=== PATIENT | male | born 1965 | race African-American/Black ===

== ENCOUNTER 2017-10-14 12:50 | Observation (INO) | payer OTHER ==
[~2017-10-14] VITALS: Ht 182.9 cm; Wt 81.5 kg
[2017-10-14] VITALS (7 sets, daily range): BP systolic 139–168; BP diastolic 75–100; PULSE 96–130; RESP 16–20; TEMP 97.8–99; O2SAT 94–100
[~2017-10-14 12:50] MED LIST: ALLO300 PO; CYCL-36 PO; HYDR-2768 PO; LOSA25TA31; MAGN200T2 PO; METO50TA PO; TRAZ100 PO; VENL100T PO
[2017-10-14] MEDS ORDERED: ALLO300T2 PO (13:04)
[2017-10-14] MEDS ORDERED: BUSP10TA PO (13:04)
[2017-10-14] MEDS ORDERED: LISI10TA3 PO (13:04)
[2017-10-14] MEDS ORDERED: SODIUM CHLOR 0.9% 1000 ML INJ 1,000 ML IV SCH (13:11)
[2017-10-14] MEDS ORDERED: methylPREDNISolone SOD SUCC 125 MG/2 ML VIAL IV PUSH ONE (13:15)
[2017-10-14] MEDS: SODIUM CHLORIDE 0.9% FLUSH 10 ML FLUSH IV FLUSH PRN ×2 (13:18→15:23)
--- NOTE | 2017-10-14 13:18 | PD ---
HPI Chief Complaint: Allergic/Adverse Reaction Time Seen by Provider: 13:07 Travel History International Travel<30 days: No Contact w/Intl Traveler<30days: No Traveled to known affect area: No History of Present Illness HPI 52-year-old male presents to emergency department complaining of swollen lips after eating sausage this morning. Patient says he also takes lisinopril for his blood pressure and took this medication approximately 45 minutes to an hour before the onset of symptoms. Patient states that his right upper lip started "feeling funny" and then he noticed the swelling. Patient states that his lower lip also started swelling which is different than the last episode. Patient states that this occurred once before but it went away throughout the day on its on. Patient says that he has had this sausage before without any issues but believes this may be the contribute in cause. Patient says that his daughter had a similar episode after eating cake but this went away on its own as well. Denies any known family history of hereditary angioedema. Denies new medication, foods, lotions, soaps. Denies shortness of breath or chest pain. Denies nausea, vomiting, diarrhea. PFSH Past Medical History Anxiety: Yes Heart Rhythm Problems: No Cardiovascular Problems: Yes (htn) High Cholesterol: No Congestive Heart Failure: No Diabetes: No Gout: Yes Hypertension: Yes Psychiatric: Yes (pts) Myocardial Infarction: No Tetanus Vaccination: > 5 Years Influenza Vaccination: Yes Past Surgical History Coronary Artery Bypass Graft: No Social History Alcohol Use: Yes (2-3 DRINKS PER DAY, BEER OR MIXED DRINK) Tobacco Use: Yes (1 PPD-) Substance Use: No Allergies-Medications (Allergen,Severity, Reaction): Coded Allergies: No Known Allergies (Verified Allergy, Unknown, 10/14/17) Reported Meds & Prescriptions Reported Meds & Active Scripts Active Reported Buspirone (Buspirone HCl) 10 Mg Tab 10 Mg PO TID Allopurinol 300 Mg Tab 300 Mg PO DAILY Review of Systems Except as stated in HPI: all other systems reviewed are Neg Physical Exam Narrative GENERAL: Well-developed well-nourished in mild distress SKIN: Focused skin assessment warm/dry. HEAD: Atraumatic. Normocephalic. EYES: Pupils equal and round. No scleral icterus. No injection or drainage. ENT: No nasal bleeding or discharge. Mucous membranes pink and moist. Upper and lower lips- edematous without obvious oral involvement. Tongue nonedematous. NECK: Trachea midline. No JVD. No lymphadenopathy CARDIOVASCULAR: Regular rate and rhythm. No murmur appreciated. RESPIRATORY: No accessory muscle use. Clear to auscultation. Breath sounds equal bilaterally. GASTROINTESTINAL: Abdomen soft, non-tender, nondistended. MUSCULOSKELETAL: No obvious deformities. No clubbing. No cyanosis. No edema. NEUROLOGICAL: Awake and alert. No obvious cranial nerve deficits. Motor grossly within normal limits. Normal speech. PSYCHIATRIC: Appropriate mood and affect; insight and judgment normal. Data Data Last Documented VS Vital Signs Date Time Temp Pulse Resp B/P (MAP) Pulse Ox O2 Delivery O2 Flow Rate FiO2 10/14/17 15:23 97.9 98 16 168/87 (114) 99 Room Air Orders Orders Complete Blood Count With Diff (10/14/17 13:11) Comprehensive Metabolic Panel (10/14/17 13:11) Ecg Monitoring (10/14/17 13:11) Iv Access Insert/Monitor (10/14/17 13:11) Oximetry (10/14/17 13:11) Methylprednisolone So Succ Inj (Solumedr (10/14/17 13:15) Sodium Chlor 0.9% 1000 Ml Inj (Ns 1000 M (10/14/17 13:11) Sodium Chloride 0.9% Flush (Ns Flush) (10/14/17 13:15) Famotidine Inj (Pepcid Inj) (10/14/17 14:00) Diphenhydramine Inj (Benadryl Inj) (10/14/17 15:30) Admit Order (Ed Use Only) (10/14/17 15:29) Labs Laboratory Tests Test 10/14/17 13:10 White Blood Count 7.0 TH/MM3 Red Blood Count 4.05 MIL/MM3 Hemoglobin 13.0 GM/DL Hematocrit 37.8 % Mean Corpuscular Volume 93.3 FL Mean Corpuscular Hemoglobin 32.0 PG Mean Corpuscular Hemoglobin Concent 34.3 % Red Cell Distribution Width 13.7 % Platelet Count 202 TH/MM3 Mean Platelet Volume 7.7 FL Neutrophils (%) (Auto) 62.2 % Lymphocytes (%) (Auto) 29.3 % Monocytes (%) (Auto) 6.5 % Eosinophils (%) (Auto) 1.2 % Basophils (%) (Auto) 0.8 % Neutrophils # (Auto) 4.4 TH/MM3 Lymphocytes # (Auto) 2.1 TH/MM3 Monocytes # (Auto) 0.5 TH/MM3 Eosinophils # (Auto) 0.1 TH/MM3 Basophils # (Auto) 0.1 TH/MM3 CBC Comment DIFF FINAL Differential Comment Blood Urea Nitrogen 7 MG/DL Creatinine 1.17 MG/DL Random Glucose 75 MG/DL Total Protein 9.3 GM/DL Albumin 4.0 GM/DL Calcium Level 9.8 MG/DL Alkaline Phosphatase 138 U/L Aspartate Amino Transf (AST/SGOT) 110 U/L Alanine Aminotransferase (ALT/SGPT) 80 U/L Total Bilirubin 0.5 MG/DL Sodium Level 135 MEQ/L Potassium Level 4.0 MEQ/L Chloride Level 98 MEQ/L Carbon Dioxide Level 27.2 MEQ/L Anion Gap 10 MEQ/L Estimat Glomerular Filtration Rate 80 ML/MIN MDM Medical Decision Making Medical Screen Exam Complete: Yes Emergency Medical Condition: Yes Differential Diagnosis Allergic reaction, hereditary angioedema, anaphylaxis, drug-induced reaction Narrative Course 52-year-old male presents to emergency department complaining of swollen lips after eating sausage this morning. Patient says he also takes lisinopril for his blood pressure and took this medication approximately 45 minutes to an hour before the onset of symptoms. Patient states that his right upper lip started "feeling funny" and then he noticed the swelling. Patient states that his lower lip also started swelling which is different than the last episode. Patient states that this occurred once before but it went away throughout the day on its on. Patient says that he has had this sausage before without any issues but believes this may be the contribute in cause. Patient says that his daughter had a similar episode after eating cake but this went away on its own as well. Denies any known family history of hereditary angioedema. Denies new medication, foods, lotions, soaps. Denies shortness of breath or chest pain. Denies nausea, vomiting, diarrhea. Vital signs stable. Labs stable. Reassessment demonstrates entire lip area swollen. Patient received 125 mg IV Medrol, famotidine, and 50mg Benedryl Because of the worsening symptoms, will admit to observation to ensure symptom improvement. I recommend discontinuing lisinopril. Follow-up with a metal shaping machine operator or sap sd analyst. Thank you Dr. Helms for taking this patient. Diagnosis Primary Impression: Angio-edema Qualified Codes: T78.3XXA - Angioneurotic edema, initial encounter Admitting Information Admitting Physician Requests: Observation Condition: Stable Kristine Ellis Oct 14, 2017 13:18
[2017-10-14 13:38] LABS: AUTOMATED NEUTROPHIL # 4.4 TH/MM3 (1.8-7.7); BASOPHIL # 0.1 TH/MM3 (0-0.2); BASOPHIL % 0.8 % (0.0-2.0); EOSINOPHIL # 0.1 TH/MM3 (0-0.4); EOSINOPHIL % 1.2 % (0.0-4.0); HEMATOCRIT 37.8 % (39.0-51.0); HEMO FLAGS DIFF FINAL; LYMPH % 29.3 % (9.0-44.0); LYMPHOCYTE # 2.1 TH/MM3 (1.0-4.8); MEAN CELL VOLUME 93.3 FL (80.0-100.0); MEAN CORPUSCULAR HGB CONC 34.3 % (32.0-36.0); MONO % 6.5 % (0.0-8.0); NEUT % 62.2 % (16.0-70.0); PLATELET COUNT 202 TH/MM3 (150-450); RED BLOOD COUNT 4.05 MIL/MM3 (4.50-5.90); RED CELL DISTRIBUTION WIDTH 13.7 % (11.6-17.2)
[2017-10-14] MEDS ORDERED: FAMOTIDINE 20 MG/2 ML VIAL IV PUSH ONE (14:00)
[2017-10-14 14:05] LABS: ALT (GPT) 80 U/L (12-78); ANION GAP 10 MEQ/L (5-15); AST (GOT) 110 U/L (15-37); BICARBONATE 27.2 MEQ/L (21.0-32.0); BLOOD UREA NITROGEN 7 MG/DL (7-18); CHLORIDE 98 MEQ/L (98-107); GLOMERULAR FILTRATION RATE 80 ML/MIN (>89); SODIUM (NA) 135 MEQ/L (136-145)
[2017-10-14 14:07] LABS: ALKALINE PHOSPHATASE 138 U/L (45-117); TOTAL BILIRUBIN ADULT 0.5 MG/DL (0.2-1.0)
[2017-10-14] MEDS ORDERED: diphenhydrAMINE HCL 50 MG/ML VIAL IV PUSH ONE (15:30)
--- NOTE | 2017-10-14 15:47 | HHI.HP ---
[facility] Service Family Medicine Primary Care Physician Evangel[facility] Admission Diagnosis angioedema Diagnoses: International Travel<30 Days: No Contact w/Intl Traveler<30days: No Known Affected Area: No History of Present Illness Mr. George is a 52 y/o M with history of gout and HTN presents to the ED with acute lip swelling. He reports that around 0 900 this morning he noticed his right upper lobe have become swollen to twice the size of his normal level. He took 2 doses of Benadryl between 0900 and 1230, however has looked severely worsened and had become 4-5 times per normal size on both the upper and lower lip. He endorses some irritation on the back of his neck and cheeks, but denies any shortness of breath, airway closure, or increased salivation. This morning he had taken his daily lisinopril 5 mg (1/2 tablet) and even some sausage. He is been taking lisinopril for 1 year and has had one similar episode where his lip swelling resolved on its own. The sausage he had eaten, he had for breakfast many times before without reaction. He endorses a family history of allergic reaction with his daughter to red velvet cake. Otherwise he denies any other allergies or episodes of acute edema. He has no other complaints and denies any fevers, chills, shortness of breath, chest pain, NVD, abdominal pain , or calf tenderness. (Matthew Helms MD R2) Review of Systems Constitutional: DENIES: Fever, Chills Eyes: DENIES: Blurred vision, Double Vision Ears, nose, mouth, throat: DENIES: Throat pain, Running Nose Respiratory: DENIES: Cough, Shortness of breath Cardiovascular: DENIES: Chest pain, Syncope Gastrointestinal: DENIES: Abdominal pain, Diarrhea, Nausea, Vomiting Genitourinary: DENIES: Hematuria, Dysuria Musculoskeletal: COMPLAINS OF: Joint pain, Back pain Integumentary: DENIES: Rash Hematologic/lymphatic: COMPLAINS OF: Lymphadenopathy Immunologic/allergic: COMPLAINS OF: Urticaria Neurologic: DENIES: Headache Psychiatric: DENIES: Mood changes (Matthew Helms MD R2) Past Family Social History Past Medical History HTN Gout Concern for alcoholic liver disease PTSD Past Surgical History ORIF of L ankle (Matthew Helms MD R2) Allergies: Coded Allergies: lisinopril (Verified Allergy, Severe, 10/15/17) angioedema Family History Father - , T2DM Mother - , HTN Daughter - one episode of lip swelling after red velvet cake, otherwise healthy , no other allergies Daughter - healthy Social History Lives together with significant other in [place]. On [place] disability. PCP is at [facility]. Tobacco - 1 ppd, for 15 years Alcohol - 1-2 drinks per day, either beer or hard liquor, no withdrawal history Illicit - Cocaine use yesterday, no other history (Matthew Helms MD R2) Physical Exam Vital Signs Vital Signs Date Time Temp Pulse Resp B/P (MAP) Pulse Ox O2 Delivery O2 Flow Rate FiO2 10/14/17 15:23 97.9 98 16 168/87 (114) 99 Room Air 10/14/17 14:05 97.9 96 16 161/92 (115) 100 Room Air 10/14/17 13:17 16 98 Room Air 10/14/17 13:00 108 16 98 Room Air 10/14/17 12:51 98.5 130 20 163/100 (121) 94 Room Air Physical Exam GENERAL: Well-nourished, well-developed patient lying in bed in no acute distress. SKIN: Warm and dry. No diffuse rash. Lips: Upper and lower lips swollen to 4-5 times there are normal sinus without ulceration or hemorrhage appreciated. Patient tender to palpation on both lips. Edema palpated from the upper and lower lip ranging back to the mandible bilaterally. Sensation and range of motion intact. HEENT: Atraumatic, normocephalic with EOMI. PERRLA. Oropharynx clear without erythema or exudate. Airway appears patent. Trachea midline. No rhinorrhea. No JVD, LAD, or thyroid abnormality appreciated. CARDIOVASCULAR: Regular rate and rhythm without obvious murmurs, gallops, or rubs. RESPIRATORY: Clear to auscultation bilaterally with no CRW. No increased work of breathing. GASTROINTESTINAL: Abdomen soft, non-tender, nondistended with positive bowel sounds. No masses appreciated. MUSCULOSKELETAL: No cyanosis or edema. Strength grossly WNL. Ambulating well BACK: Nontender without obvious deformity. No CVA tenderness. NEURO/PSYCH: Afocal. Awake, alert, and oriented x3. Normal speech and judgment Laboratory Laboratory Tests Test 10/14/17 13:10 White Blood Count 7.0 Red Blood Count 4.05 Hemoglobin 13.0 Hematocrit 37.8 Mean Corpuscular Volume 93.3 Mean Corpuscular Hemoglobin 32.0 Mean Corpuscular Hemoglobin Concent 34.3 Red Cell Distribution Width 13.7 Platelet Count 202 Mean Platelet Volume 7.7 Neutrophils (%) (Auto) 62.2 Lymphocytes (%) (Auto) 29.3 Monocytes (%) (Auto) 6.5 Eosinophils (%) (Auto) 1.2 Basophils (%) (Auto) 0.8 Neutrophils # (Auto) 4.4 Lymphocytes # (Auto) 2.1 Monocytes # (Auto) 0.5 Eosinophils # (Auto) 0.1 Basophils # (Auto) 0.1 CBC Comment DIFF FINAL Differential Comment Blood Urea Nitrogen 7 Creatinine 1.17 Random Glucose 75 Total Protein 9.3 Albumin 4.0 Calcium Level 9.8 Alkaline Phosphatase 138 Aspartate Amino Transf (AST/SGOT) 110 Alanine Aminotransferase (ALT/SGPT) 80 Total Bilirubin 0.5 Sodium Level 135 Potassium Level 4.0 Chloride Level 98 Carbon Dioxide Level 27.2 Anion Gap 10 Estimat Glomerular Filtration Rate 80 (Matthew Helms MD R2) Result Diagram: 10/14/17130910/14/171309 Caprini VTE Risk Assessment Caprini VTE Risk Assessment: Mod/High Risk (score >= 2) Caprini Risk Assessment Model Point Value = 1 Point Value = 2 Point Value = 3 Point Value = 5 Age 41-60 Minor surgery BMI > 25 kg/m2 Swollen legs Varicose veins or History of unexplained or recurrent spontaneous Oral contraceptives or hormone replacement Sepsis (< 1 month) Serious lung disease, including pneumonia (< 1 month) Abnormal pulmonary function Acute myocardial infarction Congestive heart failure (< 1 month) History of inflammatory bowel disease Medical patient at bed rest Age 61-74 Arthroscopic surgery Major open surgery (> 45 min) Laparoscopic surgery (> 45 min) Malignancy Confined to bed (> 72 hours) Immobilizing plaster cast Central venous access Age >= 75 History of VTE Family history of VTE Factor V Leiden Prothrombin [id number] Lupus anticoagulant Anticardiolipin antibodies Elevated serum homocysteine Heparin-induced thrombocytopenia Other congenital or acquired thrombophilia Stroke (< 1 month) Elective arthroplasty Hip, pelvis, or leg fracture Acute spinal cord injury (< 1 month) Prophylaxis Regimen Total Risk Factor Score Risk Level Prophylaxis Regimen 0-1 Low Early ambulation 2 Moderate Order ONE of the following: *Sequential Compression Device (SCD) *Heparin 5000 units SQ BID 3-4 Higher Order ONE of the following medications: *Heparin 5000 units SQ TID *Enoxaparin/Lovenox 40 mg SQ daily (WT < 150 kg, CrCl > 30 mL/min) *Enoxaparin/Lovenox 30 mg SQ daily (WT < 150 kg, CrCl > 10-29 mL/min) *Enoxaparin/Lovenox 30 mg SQ BID (WT < 150 kg, CrCl > 30 mL/min) AND/OR *Sequential Compression Device (SCD) 5 or more Highest Order ONE of the following medications: *Heparin 5000 units SQ TID (Preferred with Epidurals) *Enoxaparin/Lovenox 40 mg SQ daily (WT < 150 kg, CrCl > 30 mL/min) *Enoxaparin/Lovenox 30 mg SQ daily (WT < 150 kg, CrCl > 10-29 mL/min) *Enoxaparin/Lovenox 30 mg SQ BID (WT < 150 kg, CrCl > 30 mL/min) AND *Sequential Compression Device (SCD) (Matthew Helms MD R2) Assessment and Plan Assessment and Plan Mr. Meneses is a 52-year-old male admitted for angioedema of the upper and lower lips. Code Status Full Code Discussed Condition With Mrs. Ellis, ALON PA Dr. Brown (Matthew Helms MD R2) Attending Attestation Patient seen and examined. Case reviewed and discussed with the resident team. Agree with plan of care as discussed with me and documented in the resident note. he was seen in the ED by me with Dr Helms. agree with watching overnight (Nadia Brown MD) Problem List: (1) Angio-edema ICD Codes: T78.3XXA - Angioneurotic edema, initial encounter Status: Acute Plan: Patient presenting with angioedema of upper and lower lips likely due to REINIER inhibitor use -Discontinue lisinopril and all reinier medications -Solu-Medrol 40 mg IV every 12 hours -Patient previously received Benadryl, Pepcid, and Solu-Medrol in ER -Edema likely to resolve without further intervention, continue to monitor -With worsening symptoms/airway closing will treat patient with epinephrine as needed for anaphylaxis protocol (2) Gout ICD Codes: M10.9 - Gout, unspecified Status: Chronic Plan: Patient with history of gout -Continue allopurinol (3) PTSD (post-traumatic stress disorder) ICD Codes: F43.10 - Post-traumatic stress disorder, unspecified Status: Chronic Plan: Patient with history of PTSD -Continue home buspirone (4) Nutrition, metabolism, and development symptoms ICD Codes: R63.8 - Other symptoms and signs concerning food and fluid intake Status: Acute Plan: Fluids: 120 mL per hour Diet: Regular as tolerated Electrolytes: Sodium 135, otherwise within normal limits, continue to monitor Prophylaxis: Constipation protocol, Tylenol when necessary for fever, Zofran when necessary for nausea/vomiting (5) No contraindication to deep vein thrombosis (DVT) prophylaxis ICD Codes: Z78.9 - Other specified health status Status: Acute Plan: Heparin 5000 units every 12 hours SCDs (Matthew Helms MD R2) Problem Qualifiers (1) Angio-edema: Qualified Codes: T78.3XXA - Angioneurotic edema, initial encounter (2) Gout: Qualified Codes: M10.9 - Gout, unspecified Matthew Helms MD R2 Oct 14, 2017 15:47 Nadia Brown MD Oct 15, 2017 11:46
[2017-10-14] MEDS ORDERED: ACETAMINOPHEN 325 MG TAB PO PRN (17:15)
[2017-10-14] MEDS ORDERED: NALOXONE HCL 0.4 MG/ML AMP IV PUSH PRN (17:15)
[2017-10-14] MEDS ORDERED: ONDANSETRON HCL 4 MG/2 ML VIAL IVP PRN (17:15)
[2017-10-14] MEDS ORDERED: MAGNESIUM HYDROXIDE SUSP 30 ML CUP PO PRN (17:15)
[2017-10-14] MEDS ORDERED: DOCUSATE SODIUM 50 MG/SENNA 8.6 MG TAB PO PRN (17:15)
[2017-10-14] MEDS ORDERED: SENNOSIDES 8.6 MG TAB PO PRN (17:15)
[2017-10-14] MEDS ORDERED: BISACODYL 10 MG SUPP RECTAL PRN (17:15)
[2017-10-14] MEDS ORDERED: LACTULOSE SYRUP 20 GM/30 ML CUP PO PRN (17:15)
[2017-10-14] MEDS: busPIRone HCL 10 MG TAB PO SCH (18:02)
[2017-10-14] MEDS: SODIUM CHLOR 0.9% 1000 ML INJ 1,000 ML IV SCH (18:02)
[2017-10-14] MEDS: HEPARIN SODIUM - SQ 10,000 UNITS/ML VIAL SQ SCH (18:02)
--- NOTE | 2017-10-14 19:14 | PD ---
Data Data Last Documented VS Vital Signs Date Time Temp Pulse Resp B/P (MAP) Pulse Ox O2 Delivery O2 Flow Rate FiO2 10/14/17 15:23 97.9 98 16 168/87 (114) 99 Room Air Orders Orders Complete Blood Count With Diff (10/14/17 13:11) Comprehensive Metabolic Panel (10/14/17 13:11) Ecg Monitoring (10/14/17 13:11) Iv Access Insert/Monitor (10/14/17 13:11) Oximetry (10/14/17 13:11) Methylprednisolone So Succ Inj (Solumedr (10/14/17 13:15) Sodium Chlor 0.9% 1000 Ml Inj (Ns 1000 M (10/14/17 13:11) Sodium Chloride 0.9% Flush (Ns Flush) (10/14/17 13:15) Famotidine Inj (Pepcid Inj) (10/14/17 14:00) Diphenhydramine Inj (Benadryl Inj) (10/14/17 15:30) Admit Order (Ed Use Only) (10/14/17 15:29) Labs Laboratory Tests Test 10/14/17 13:10 White Blood Count 7.0 TH/MM3 Red Blood Count 4.05 MIL/MM3 Hemoglobin 13.0 GM/DL Hematocrit 37.8 % Mean Corpuscular Volume 93.3 FL Mean Corpuscular Hemoglobin 32.0 PG Mean Corpuscular Hemoglobin Concent 34.3 % Red Cell Distribution Width 13.7 % Platelet Count 202 TH/MM3 Mean Platelet Volume 7.7 FL Neutrophils (%) (Auto) 62.2 % Lymphocytes (%) (Auto) 29.3 % Monocytes (%) (Auto) 6.5 % Eosinophils (%) (Auto) 1.2 % Basophils (%) (Auto) 0.8 % Neutrophils # (Auto) 4.4 TH/MM3 Lymphocytes # (Auto) 2.1 TH/MM3 Monocytes # (Auto) 0.5 TH/MM3 Eosinophils # (Auto) 0.1 TH/MM3 Basophils # (Auto) 0.1 TH/MM3 CBC Comment DIFF FINAL Differential Comment Blood Urea Nitrogen 7 MG/DL Creatinine 1.17 MG/DL Random Glucose 75 MG/DL Total Protein 9.3 GM/DL Albumin 4.0 GM/DL Calcium Level 9.8 MG/DL Alkaline Phosphatase 138 U/L Aspartate Amino Transf (AST/SGOT) 110 U/L Alanine Aminotransferase (ALT/SGPT) 80 U/L Total Bilirubin 0.5 MG/DL Sodium Level 135 MEQ/L Potassium Level 4.0 MEQ/L Chloride Level 98 MEQ/L Carbon Dioxide Level 27.2 MEQ/L Anion Gap 10 MEQ/L Estimat Glomerular Filtration Rate 80 ML/MIN MDM Supervised Visit with EVER: Yes Narrative Course The history, exam, and medical decision-making in the associated midlevel provider note were completed with my assistance. I reviewed and agree with the findings presented. I attest that I had a [id number] encounter with the patient on the same day, and personally performed and documented my assessment and findings in the medical record. *My assessment and Findings: This is a 52-year-old male who presents to the emergency department with lip swelling that's been going on for 1 day consistent with angioedema. He takes lisinopril at home. Labs are reassuring. He was given Benadryl, steroids and an H2 elis. Patient will be admitted as his lip swelling did not improve. I don't appreciate any signs of posterior pharyngeal or laryngeal involvement on his exam. Diagnosis Primary Impression: Angio-edema Qualified Codes: T78.3XXA - Angioneurotic edema, initial encounter Admitting Information Admitting Physician Requests: Observation Condition: Stable Pretty Castillo MD Oct 14, 2017 19:14
[2017-10-15 00:09] VITALS: BP 154/89; PULSE 94; RESP 17; TEMP 98.4; O2SAT 97
[2017-10-15] MEDS ORDERED: methylPREDNISolone SOD SUCC 40 MG/1 ML VIAL IV PUSH SCH (01:00)
[2017-10-15] MEDS: SODIUM CHLOR 0.9% 1000 ML INJ 1,000 ML IV SCH ×2 (01:30→09:42)
[2017-10-15 04:27] VITALS: BP 145/75; PULSE 92; RESP 17; TEMP 98.4; O2SAT 96
[2017-10-15] MEDS: HEPARIN SODIUM - SQ 10,000 UNITS/ML VIAL SQ SCH (06:00)
[2017-10-15 07:45] VITALS: BP 141/90; PULSE 95; RESP 18; TEMP 98.5; O2SAT 100
[2017-10-15 08:10] VITALS: PULSE 91
[2017-10-15 08:13] LABS: ALT (GPT) 60 U/L (12-78); ANION GAP 9 MEQ/L (5-15); AST (GOT) 59 U/L (15-37); BICARBONATE 25.6 MEQ/L (21.0-32.0); BLOOD UREA NITROGEN 16 MG/DL (7-18); CHLORIDE 98 MEQ/L (98-107); POTASSIUM 3.7 MEQ/L (3.5-5.1); SODIUM (NA) 133 MEQ/L (136-145)
[2017-10-15 08:15] LABS: ALKALINE PHOSPHATASE 118 U/L (45-117); GLOMERULAR FILTRATION RATE 78 ML/MIN (>89); TOTAL BILIRUBIN ADULT 0.6 MG/DL (0.2-1.0)
[2017-10-15] MEDS ORDERED: ALLOPURINOL 300 MG TAB PO SCH (09:00)
[2017-10-15] MEDS: busPIRone HCL 10 MG TAB PO SCH (09:23)
--- NOTE | 2017-10-15 09:42 | HHI.DCPOC ---
Discharge Care Plan Diagnosis: (1) Angio-edema Goals to Promote Your Health * To prevent worsening of your condition and complications * To maintain your health at the optimal level Directions to Meet Your Goals Take your medications as prescribed Follow your dietary instruction Follow activity as directed Keep your appointments as scheduled Take your immunizations and boosters as scheduled If your symptoms worsen call your PCP, if no PCP go to Urgent Care Center or Emergency Room Smoking is Dangerous to Your Health. Avoid second hand smoke Call the 24-hour hour crisis hotline for domestic abuse at Ray Hutson MD, R3 Oct 15, 2017 09:42
[2017-10-15] MEDS ORDERED: PRED20 PO (09:45)
--- NOTE | 2017-10-15 11:34 | HHI.HP ---
[facility] Service Family Medicine Primary Care Physician [facility] Admission Diagnosis angioedema Diagnoses: (1) Angio-edema Diagnosis: Principal (2) PTSD (post-traumatic stress disorder) Diagnosis: Principal (3) Gout Diagnosis: Principal (4) Nutrition, metabolism, and development symptoms Diagnosis: Principal (5) No contraindication to deep vein thrombosis (DVT) prophylaxis Diagnosis: Principal International Travel<30 Days: No Contact w/Intl Traveler<30days: No Known Affected Area: No History of Present Illness Mr. George is a 52 y/o M with history of gout and HTN who presented to the ED with acute lip swelling. He reports that around 900 the morning of admission he noticed his right upper lip had become swollen to twice the size of his normal level. He took 2 doses of Benadryl between 0900 and 1230, however he severely worsened and had become 4-5 times bigger than normal size on both the upper and lower lip. He endorses some irritation on the back of his neck and cheeks, but denies any shortness of breath, airway closure, or increased salivation. That morning he had taken his daily lisinopril 5 mg (1/2 tablet) and even some sausage. He is been taking lisinopril for 1 year and has had one similar episode where his lip swelling resolved on its own. The sausage he had eaten, he had for breakfast many times before without reaction. He endorses a family history of allergic reaction with his daughter to red velvet cake. Otherwise he denies any other allergies or episodes of acute edema. He has no other complaints and denies any fevers, chills, shortness of breath, chest pain, NVD, abdominal pain, or calf tenderness. Overnight, he has resolved a great deal of his edema and is basically a long way towards being back to normal. He is eager to go home and knows that he needs to avoid all REINIER Inhibitors forever as he can get life threatening throat edema if he takes a similar med in the future. Review of Systems Other Constitutional: DENIES: Fever, Chills Eyes: DENIES: Blurred vision, Double Vision Ears, nose, mouth, throat: DENIES: Throat pain, Running Nose Respiratory: DENIES: Cough, Shortness of breath Cardiovascular: DENIES: Chest pain, Syncope Gastrointestinal: DENIES: Abdominal pain, Diarrhea, Nausea, Vomiting Genitourinary: DENIES: Hematuria, Dysuria Musculoskeletal: COMPLAINS OF: Joint pain, Back pain Integumentary: DENIES: Rash Hematologic/lymphatic: COMPLAINS OF: Lymphadenopathy Immunologic/allergic: COMPLAINS OF: Urticaria Neurologic: DENIES: Headache Psychiatric: DENIES: Mood changes Past Family Social History Past Medical History HTN Gout Concern for alcoholic liver disease PTSD Past Surgical History ORIF of L ankle Allergies: Coded Allergies: lisinopril (Verified Allergy, Severe, 10/15/17) angioedema Family History Father - , T2DM Mother - , HTN Daughter - one episode of lip swelling after red velvet cake, otherwise healthy , no other allergies Daughter - healthy Social History Lives together with significant other in [place]. [place]. PCP is at [facility]. Tobacco - 1 ppd, for 15 years Alcohol - 1-2 drinks per day, either beer or hard liquor, no withdrawal history Illicit - Cocaine use yesterday, no other history Physical Exam Vital Signs Vital Signs Date Time Temp Pulse Resp B/P (MAP) Pulse Ox O2 Delivery O2 Flow Rate FiO2 10/15/17 09:32 21 10/15/17 08:10 91 10/15/17 07:45 98.5 95 18 141/90 (107) 100 10/15/17 04:27 98.4 92 17 145/75 (98) 96 10/15/17 00:09 98.4 94 17 154/89 (110) 97 10/14/17 20:11 99.0 115 18 139/75 (96) 97 10/14/17 19:00 97.8 96 16 168/83 (111) 99 10/14/17 17:05 98 21 10/14/17 15:23 97.9 98 16 168/87 (114) 99 Room Air 10/14/17 14:05 97.9 96 16 161/92 (115) 100 Room Air 10/14/17 13:17 16 98 Room Air 10/14/17 13:00 108 16 98 Room Air 10/14/17 12:51 98.5 130 20 163/100 (121) 94 Room Air Physical Exam GENERAL: Well-nourished, well-developed patient lying in bed in no acute distress. breathing and swallowing well SKIN: Warm and dry. No diffuse rash. Lips: Upper and lower lips swollen to 4-5 times normal without ulceration or hemorrhage appreciated. Patient tender to palpation on both lips. Edema palpated from the upper and lower lip ranging back to the mandible bilaterally. Sensation and range of motion intact. His mouth and tongue appear normal sized and non edematous. Today- his lips are still swollen but he can speak normally and they are less than half the size as yesterday. HEENT: Atraumatic, normocephalic with EOMI. PERRLA. Oropharynx clear without erythema or exudate. Airway appears patent. Trachea midline. No rhinorrhea. No JVD, LAD, or thyroid abnormality appreciated. CARDIOVASCULAR: Regular rate and rhythm without obvious murmurs, gallops, or rubs. RESPIRATORY: Clear to auscultation bilaterally with no CRW. No increased work of breathing. GASTROINTESTINAL: Abdomen soft, non-tender, nondistended with positive bowel sounds. No masses appreciated. MUSCULOSKELETAL: No cyanosis or edema. Strength grossly WNL. Ambulating well BACK: Nontender without obvious deformity. No CVA tenderness. NEURO/PSYCH: Afocal. Awake, alert, and oriented x3. Normal speech and judgment Laboratory Laboratory Tests Test 10/14/17 13:10 10/15/17 06:35 White Blood Count 7.0 Red Blood Count 4.05 Hemoglobin 13.0 Hematocrit 37.8 Mean Corpuscular Volume 93.3 Mean Corpuscular Hemoglobin 32.0 Mean Corpuscular Hemoglobin Concent 34.3 Red Cell Distribution Width 13.7 Platelet Count 202 Mean Platelet Volume 7.7 Neutrophils (%) (Auto) 62.2 Lymphocytes (%) (Auto) 29.3 Monocytes (%) (Auto) 6.5 Eosinophils (%) (Auto) 1.2 Basophils (%) (Auto) 0.8 Neutrophils # (Auto) 4.4 Lymphocytes # (Auto) 2.1 Monocytes # (Auto) 0.5 Eosinophils # (Auto) 0.1 Basophils # (Auto) 0.1 CBC Comment DIFF FINAL Differential Comment Blood Urea Nitrogen 7 16 Creatinine 1.17 1.20 Random Glucose 75 148 Total Protein 9.3 8.4 Albumin 4.0 3.6 Calcium Level 9.8 9.3 Alkaline Phosphatase 138 118 Aspartate Amino Transf (AST/SGOT) 110 59 Alanine Aminotransferase (ALT/SGPT) 80 60 Total Bilirubin 0.5 0.6 Sodium Level 135 133 Potassium Level 4.0 3.7 Chloride Level 98 98 Carbon Dioxide Level 27.2 25.6 Anion Gap 10 9 Estimat Glomerular Filtration Rate 80 78 Result Diagram: 10/14/17 1310 10/15/17 0635 Caprini VTE Risk Assessment Caprini VTE Risk Assessment: Mod/High Risk (score >= 2) Caprini Risk Assessment Model Point Value = 1 Point Value = 2 Point Value = 3 Point Value = 5 Age 41-60 Minor surgery BMI > 25 kg/m2 Swollen legs Varicose veins or History of unexplained or recurrent spontaneous Oral contraceptives or hormone replacement Sepsis (< 1 month) Serious lung disease, including pneumonia (< 1 month) Abnormal pulmonary function Acute myocardial infarction Congestive heart failure (< 1 month) History of inflammatory bowel disease Medical patient at bed rest Age 61-74 Arthroscopic surgery Major open surgery (> 45 min) Laparoscopic surgery (> 45 min) Malignancy Confined to bed (> 72 hours) Immobilizing plaster cast Central venous access Age >= 75 History of VTE Family history of VTE Factor V Leiden Prothrombin [id number] Lupus anticoagulant Anticardiolipin antibodies Elevated serum homocysteine Heparin-induced thrombocytopenia Other congenital or acquired thrombophilia Stroke (< 1 month) Elective arthroplasty Hip, pelvis, or leg fracture Acute spinal cord injury (< 1 month) Prophylaxis Regimen Total Risk Factor Score Risk Level Prophylaxis Regimen 0-1 Low Early ambulation 2 Moderate Order ONE of the following: *Sequential Compression Device (SCD) *Heparin 5000 units SQ BID 3-4 Higher Order ONE of the following medications: *Heparin 5000 units SQ TID *Enoxaparin/Lovenox 40 mg SQ daily (WT < 150 kg, CrCl > 30 mL/min) *Enoxaparin/Lovenox 30 mg SQ daily (WT < 150 kg, CrCl > 10-29 mL/min) *Enoxaparin/Lovenox 30 mg SQ BID (WT < 150 kg, CrCl > 30 mL/min) AND/OR *Sequential Compression Device (SCD) 5 or more Highest Order ONE of the following medications: *Heparin 5000 units SQ TID (Preferred with Epidurals) *Enoxaparin/Lovenox 40 mg SQ daily (WT < 150 kg, CrCl > 30 mL/min) *Enoxaparin/Lovenox 30 mg SQ daily (WT < 150 kg, CrCl > 10-29 mL/min) *Enoxaparin/Lovenox 30 mg SQ BID (WT < 150 kg, CrCl > 30 mL/min) AND *Sequential Compression Device (SCD) Assessment and Plan Assessment and Plan Mr. Meneses is a 52-year-old male admitted for angioedema of the upper and lower lips. Problem List: (1) Angio-edema ICD Codes: T78.3XXA - Angioneurotic edema, initial encounter Status: Acute Plan: Patient presenting with angioedema of upper and lower lips likely due to REINIER inhibitor use -Discontinue lisinopril and all reinier medications -Solu-Medrol 40 mg IV every 12 hours -Patient previously received Benadryl, Pepcid, and Solu-Medrol in ER -Edema likely to resolve without further intervention, continue to monitor -With worsening symptoms/airway closing will treat patient with epinephrine as needed for anaphylaxis protocol fortunately he continued to improve on his own and is doing well this am (2) Gout ICD Codes: M10.9 - Gout, unspecified Status: Chronic Plan: Patient with history of gout -Continue allopurinol (3) PTSD (post-traumatic stress disorder) ICD Codes: F43.10 - Post-traumatic stress disorder, unspecified Status: Chronic Plan: Patient with history of PTSD -Continue home buspirone (4) Nutrition, metabolism, and development symptoms ICD Codes: R63.8 - Other symptoms and signs concerning food and fluid intake Status: Acute Plan: Fluids: 120 mL per hour Diet: Regular as tolerated Electrolytes: Sodium 135, otherwise within normal limits, continue to monitor Prophylaxis: Constipation protocol, Tylenol when necessary for fever, Zofran when necessary for nausea/vomiting (5) No contraindication to deep vein thrombosis (DVT) prophylaxis ICD Codes: Z78.9 - Other specified health status Status: Acute Plan: Heparin 5000 units every 12 hours SCDs Problem Qualifiers (1) Angio-edema: Qualified Codes: T78.3XXA - Angioneurotic edema, initial encounter (2) Gout: Qualified Codes: M10.9 - Gout, unspecified Nadia Brown MD Oct 15, 2017 11:34
== END 2017-10-15 11:10 | disposition home or self-care (01) ==
LOC: NEPC 12:50 → NEDA 15:32 → NEPHCDU 19:18
PROVIDERS: ADMIT Family Medicine; ATTEND Family Medicine
DX: T78.3XXA Angioneurotic edema, initial encounter (principal); M10.9 Gout, unspecified; F43.10 Post-traumatic stress disorder, unspecified; R63.8 Other symptoms and signs concerning food and fluid intake; I10 Essential (primary) hypertension; F41.9 Anxiety disorder, unspecified; F14.90 Cocaine use, unspecified, uncomplicated; F17.200 Nicotine dependence, unspecified, uncomplicated; Z79.899 Other long term (current) drug therapy; X58.XXXA Exposure to other specified factors, initial encounter
CPT/HCPCS: 80053; 85025; 96361; 96372; 96374; 96375; 96376; 97162; 99285; G0378; G8987; G8988; J1200; J1644; J2920; J2930; J7030

== ENCOUNTER 2018-03-27 13:58 | Inpatient (IN) | payer OTHER ==
[~2018-03-27] VITALS: Ht 182.9 cm; Wt 79.3 kg
[~2018-03-27 13:58] MED LIST changes: -ALLO300 PO; +ALLO300T2 PO; +BUSP10TA PO; -CYCL-36 PO; -HYDR-2768 PO; -LOSA25TA31; -MAGN200T2 PO; -METO50TA PO; +PRED20 PO; -TRAZ100 PO; -VENL100T PO
[2018-03-27] MEDS ORDERED: IOHEXOL 350 MG/ML 10 ML VIAL (for RAD DIAG) IVCONTRAST ONE (13:59)
[2018-03-27 14:23] VITALS: BP 112/79; PULSE 117; RESP 20; TEMP 97.3; O2SAT 98
[2018-03-27 15:36] VITALS: PULSE 114; RESP 18; O2SAT 97
[2018-03-27 15:39] LABS: AUTOMATED NEUTROPHIL # 2.6 TH/MM3 (1.8-7.7); BASOPHIL % 0.9 % (0.0-2.0); EOSINOPHIL % 0.4 % (0.0-4.0); HEMOGLOBIN 17.2 GM/DL (13.0-17.0); LYMPH % 20.9 % (9.0-44.0); LYMPHOCYTE # 0.7 TH/MM3 (1.0-4.8); MEAN CELL VOLUME 98.1 FL (80.0-100.0); MEAN CORPUSCULAR HEMOGLOBIN 33.8 PG (27.0-34.0); MEAN CORPUSCULAR HGB CONC 34.4 % (32.0-36.0); MEAN PLATELET VOLUME 10.5 FL (7.0-11.0); MONO % 5.2 % (0.0-8.0); MONOCYTE # 0.2 TH/MM3 (0-0.9); NEUT % 72.6 % (16.0-70.0); PLATELET COUNT 147 TH/MM3 (150-450); RED CELL DISTRIBUTION WIDTH 14.7 % (11.6-17.2); WHITE BLOOD COUNT 3.6 TH/MM3 (4.0-11.0)
--- NOTE | 2018-03-27 15:47 | PD ---
HPI Chief Complaint: Cardiac Complaint Time Seen by Provider: 15:20 Travel History International Travel<30 days: No Contact w/Intl Traveler<30days: No Traveled to known affect area: No History of Present Illness HPI 52-year-old male presents to the emergency department sent by the [facility] for evaluation of bilateral lower extremity edema, possible CHF. The patient reports bilateral lower extremity edema for approximately 2 weeks. He states he thought if he elevated his legs, it would resolve. However, as not. He also reports shortness of breath. He denies any fevers or chills. No chest pain. He denies abdominal pain. No vomiting or diarrhea. He does state that he drinks alcohol daily, he states the amount changes. Patient also reports using cocaine and marijuana. He denies any IV drug use. Patient denies any history of CHF. His only history is hypertension. Patient denies pain at this time. Moderate severity. PFSH Past Medical History Asthma: No Blood Disorders: No Anxiety: Yes Heart Rhythm Problems: No Cancer: No Cardiovascular Problems: Yes High Cholesterol: No Chemotherapy: No Chest Pain: No Congestive Heart Failure: No COPD: No Diabetes: No Endocrine: No Gout: Yes Genitourinary: No Hypertension: Yes Immune Disorder: No Musculoskeletal: No Psychiatric: Yes (PTSD ) Reproductive: No Respiratory: No Myocardial Infarction: No Radiation Therapy: No Sleep Apnea: No Thyroid Disease: No Past Surgical History Body Medical Devices: screw L/ ankle Coronary Artery Bypass Graft: No Other Surgery: Yes (L/ ankle repair) Social History Alcohol Use: Yes (2-3 DRINKS PER DAY, BEER OR MIXED DRINK) Tobacco Use: Yes (1 PPD) Substance Use: Yes (Cocaine, marijuana) Allergies-Medications (Allergen,Severity, Reaction): Coded Allergies: lisinopril (Verified Allergy, Severe, 10/15/17) angioedema Reported Meds & Prescriptions Reported Meds & Active Scripts Active Reported Allopurinol 300 Mg Tab 300 Mg PO DAILY Review of Systems Except as stated in HPI: all other systems reviewed are Neg Physical Exam Narrative GENERAL: Well-nourished, well-developed male patient, afebrile. SKIN: Focused skin assessment warm/dry. HEAD: Normocephalic. Atraumatic. EYES: No scleral icterus. No injection or drainage. NECK: Supple, trachea midline. No JVD or lymphadenopathy. CARDIOVASCULAR: Regular rate and rhythm without murmurs, gallops, or rubs. Bilateral radial and pedal pulses 2+ RESPIRATORY: Breath sounds equal bilaterally. No accessory muscle use. Lung sounds are clear to auscultation peer GASTROINTESTINAL: Abdomen soft and nondistended. He has mild tenderness over epigastric region. MUSCULOSKELETAL: No cyanosis. 2+ bilateral lower extremity edema. He had tenderness to palpation over the posterior calves. BACK: Nontender without obvious deformity. No CVA tenderness. Data Data Last Documented VS Vital Signs Date Time Temp Pulse Resp B/P (MAP) Pulse Ox O2 Delivery O2 Flow Rate FiO2 03/27/18 15:36 99 Room Air 03/27/18 15:36 114 18 03/27/18 14:23 97.3 112/79 (90) Orders Orders Electrocardiogram (03/27/18 14:34) Complete Blood Count With Diff (03/27/18 14:34) Basic Metabolic Panel (Bmp) (03/27/18 14:34) Ckmb (Isoenzyme) Profile (03/27/18 14:34) Troponin I (03/27/18 14:34) Iv Access Insert/Monitor (03/27/18 14:34) Ecg Monitoring (03/27/18 14:34) Oxygen Administration (03/27/18 14:34) Oximetry (03/27/18 14:34) B-Type Natriuretic Peptide (03/27/18 14:34) Chest, Pa & Lat (03/27/18 ) Hepatic Functional Panel (03/27/18 15:33) Lipase (03/27/18 15:33) Us Leg Venous Doppler Bilat (03/27/18 ) Magnesium (Mg) (03/27/18 15:33) Act Partial Throm Time (Ptt) (03/27/18 15:33) Prothrombin Time / Inr (Pt) (03/27/18 15:33) CKMB (03/27/18 14:49) CKMB% (03/27/18 14:49) Ct Pulmonary Angiogram (03/27/18 ) Ct Abd/Pel W Iv Contrast(Rout) (03/27/18 ) Aspirin Chew (Aspirin Chew) (03/27/18 16:45) Furosemide Inj (Lasix Inj) (03/27/18 17:30) Potassium Chloride (Kcl) (03/27/18 17:30) Iohexol 350 Inj (Omnipaque 350 Inj) (03/27/18 13:59) Echo 2d Comp With Doppler (03/27/18 ) Admit Order (Ed Use Only) (03/27/18 17:48) Labs Laboratory Tests Test 03/27/18 14:49 White Blood Count 3.6 TH/MM3 Red Blood Count 5.10 MIL/MM3 Hemoglobin 17.2 GM/DL Hematocrit 50.0 % Mean Corpuscular Volume 98.1 FL Mean Corpuscular Hemoglobin 33.8 PG Mean Corpuscular Hemoglobin Concent 34.4 % Red Cell Distribution Width 14.7 % Platelet Count 147 TH/MM3 Mean Platelet Volume 10.5 FL Neutrophils (%) (Auto) 72.6 % Lymphocytes (%) (Auto) 20.9 % Monocytes (%) (Auto) 5.2 % Eosinophils (%) (Auto) 0.4 % Basophils (%) (Auto) 0.9 % Neutrophils # (Auto) 2.6 TH/MM3 Lymphocytes # (Auto) 0.7 TH/MM3 Monocytes # (Auto) 0.2 TH/MM3 Eosinophils # (Auto) 0.0 TH/MM3 Basophils # (Auto) 0.0 TH/MM3 CBC Comment DIFF FINAL Differential Comment Blood Urea Nitrogen 18 MG/DL Creatinine 1.51 MG/DL Random Glucose 101 MG/DL Calcium Level 9.9 MG/DL Sodium Level 130 MEQ/L Potassium Level 3.3 MEQ/L Chloride Level 89 MEQ/L Carbon Dioxide Level 26.3 MEQ/L Anion Gap 15 MEQ/L Estimat Glomerular Filtration Rate 60 ML/MIN Magnesium Level 1.7 MG/DL Total Bilirubin 2.2 MG/DL Direct Bilirubin 1.1 MG/DL Indirect Bilirubin 1.1 MG/DL Aspartate Amino Transf (AST/SGOT) 69 U/L Alanine Aminotransferase (ALT/SGPT) 50 U/L Alkaline Phosphatase 254 U/L Total Creatine Kinase 198 U/L Creatine Kinase MB 3.3 NG/ML Troponin I 0.12 NG/ML B-Type Natriuretic Peptide 2196 PG/ML Total Protein 9.1 GM/DL Albumin 4.5 GM/DL Lipase 467 U/L MDM Medical Decision Making Medical Screen Exam Complete: Yes Emergency Medical Condition: Yes Medical Record Reviewed: Yes Interpretation(s) Last Impressions Chest X-Ray 03/27/18 0000 Signed Impressions: Service Date/Time: Tuesday, March 27, 2018 15:01 - CONCLUSION: Slight left base infiltrate and effusion Jeff Medina MD Ct pulmonary angiogram -= Differential Diagnosis Edema versus CHF versus ACS vs electrolyte abnormality vs. DVT Narrative Course 52-year-old male presents to the emergency department for evaluation of bilateral lower extremity edema, sent by the [facility]. EKG, CBC, CMP, lipase, magnesium, CK, troponin, BNP, PTT, PT/INR are ordered and pending. Chest x-ray and venous Doppler ultrasound of bilateral lower extremities are ordered and pending. CBC shows slight leukocytosis 3.6. CMP shows hyponatremia 130, hypokalemia 3.3 , creatinine 1.51, bilirubin 2.2. Lipase is 467. Magnesium is 1.7. CK is 190. Troponin is 0.12. BNP is 2196. Chest x-ray shows slight left base infiltrate and effusion. US is negative for DVT. CT pulmonary angiogram shows small left effusion, minimal right effusion, no evidence of pulmonary embolism. Patient is given aspirin 162 mg p.o., Lasix 40 mg IV, potassium 40 mg once p.o. Patient will be admitted. He agrees to this Diagnosis Primary Impression: CHF (congestive heart failure) Qualified Codes: I50.9 - Heart failure, unspecified Additional Impressions: Elevated troponin Ascites Qualified Codes: R18.8 - Other ascites Admitting Information Admitting Physician Requests: Admit Lynette Lerner March 27, 2018 15:47
[2018-03-27 15:49] LABS: BICARBONATE 26.3 MEQ/L (21.0-32.0); BLOOD UREA NITROGEN 18 MG/DL (7-18); CALCIUM 9.9 MG/DL (8.5-10.1); CHLORIDE 89 MEQ/L (98-107); CREATININE 1.51 MG/DL (0.60-1.30); GLOMERULAR FILTRATION RATE 60 ML/MIN (>89); GLUCOSE,RANDOM 101 MG/DL (74-106); SODIUM (NA) 130 MEQ/L (136-145)
[2018-03-27 15:52] LABS: TROPONIN I 0.12 NG/ML (0.02-0.05)
--- NOTE | 2018-03-27 15:52 | RADRPT ---
EXAM DATE/TIME: 03/27/2018 15:01 [facility] COMPARISON: No previous studies available for comparison. INDICATIONS : Palpitations. Bilateral legs and hand swelling. MEDICAL HISTORY : Hypertension. SURGICAL HISTORY : None. ENCOUNTER: Initial ACUITY: 1 week PAIN SCORE: 0/10 LOCATION: Bilateral chest FINDINGS: There is slight vertical opacity at the left lung base with limping of the costophrenic angle. Right lung is clear. Cardiac contours are satisfactory. Thoracic skeleton appears intact. CONCLUSION: Slight left base infiltrate and effusion Jeff Medina MD on March 27, 2018 at 15:50 Board Certified Radiologist. This report was verified electronically.
[2018-03-27 16:22] LABS: ALBUMIN 4.5 GM/DL (3.4-5.0); DIRECT BILIRUBIN ADULT 1.1 MG/DL (0.0-0.2); MAGNESIUM 1.7 MG/DL (1.5-2.5)
[2018-03-27 16:24] LABS: INDIRECT BILIRUBIN 1.1 MG/DL (0.0-0.8); TOTAL BILIRUBIN ADULT 2.2 MG/DL (0.2-1.0); TOTAL PROTEIN 9.1 GM/DL (6.4-8.2)
[2018-03-27] MEDS ORDERED: ASPIRIN 81 MG CHEW TAB CHEW ONE (16:45)
--- NOTE | 2018-03-27 17:00 | RADRPT ---
EXAM DATE/TIME: 03/27/2018 16:14 [facility] COMPARISON: No previous studies available for comparison. INDICATIONS : Bilateral lower extremity edema. MEDICAL HISTORY : Hypertension. Post Traumatic Stress Disorder. Gout. SURGICAL HISTORY : Left ankle ORIF. ENCOUNTER: Initial ACUITY: 1 week PAIN SCORE: 3/10 LOCATION: Bilateral lower extremities. TECHNIQUE: Venous ultrasound of the left and right leg was performed from the inguinal ligament to the proximal calf. Real-time, color Doppler and spectral tracing, compression and augmentation techniques were us ed. FINDINGS: RIGHT LEG: There is normal compressibility of the deep venous system from the inguinal region to the proximal ca lf. No echogenic clot is seen in the lumen of the common femoral, femoral, popliteal, and posterior tibial veins. There is a normal response of the venous system to proximal and distal augmentation an d respiration. LEFT LEG: There is normal compressibility of the deep venous system from the inguinal region to the proximal ca lf. No echogenic clot is seen in the lumen of the common femoral, femoral, popliteal, and posterior tibial veins. There is a normal response of the venous system to proximal and distal augmentation an d respiration. CONCLUSION: Negative exam. No sonographic or Doppler findings of deep venous thrombosis. Eamon Dallas MD on March 27, 2018 at 16:57 Board Certified Radiologist. This report was verified electronically.
--- NOTE | 2018-03-27 17:13 | RADRPT ---
EXAM DATE/TIME: 03/27/2018 16:50 [facility] COMPARISON: CHEST PA & LAT, March 27, 2018, 15:01. INDICATIONS : Shortness of breath for two weeks IV CONTRAST: 90 cc Omnipaque 350 (iohexol) IV ; Cumulative dose for multiple exams. RADIATION DOSE: 12.04 CTDIvol (mGy) MEDICAL HISTORY : Cardiovascular disease. Hypertension. SURGICAL HISTORY : Orthopedic ENCOUNTER: Initial ACUITY: 2 weeks PAIN SCALE: 0/10 LOCATION: chest TECHNIQUE: Volumetric scanning of the chest was performed using a pulmonary embolism protocol MIP images were re constructed. Using automated exposure control and adjustment of the mA and/or kV according to patien t size, radiation dose was kept as low as reasonably achievable to obtain optimal diagnostic quality images. DICOM format image data is available electronically for review and comparison. Follow-up recommendations for detected pulmonary nodules are based at a minimum on nodule size and pa tient risk factors according to Fleischner Society Guidelines. FINDINGS: PULMONARY ARTERIES: No filling defects are seen in the pulmonary arteries through the segmental level. LUNGS: There is no consolidation or pneumothorax . No concerning pulmonary nodule is visualized. PLEURAE: Small left effusion. Minimal right effusion MEDIASTINUM: Mild cardiac enlargement. No evidence of mediastinal mass or lymphadenopathy. MUSCULOSKELETAL: Within normal limits for patient age. MISCELLANEOUS: The visualized upper abdominal organs demonstrate no acute abnormality. Ascites. CONCLUSION: No evidence of pulmonary embolism Jeff Medina MD on March 27, 2018 at 17:06 Board Certified Radiologist. This report was verified electronically.
--- NOTE | 2018-03-27 17:26 | RADRPT ---
EXAM DATE/TIME: 03/27/2018 16:50 [facility] COMPARISON: No previous studies available for comparison. INDICATIONS : Bilateral leg swelling IV CONTRAST: 90 cc Omnipaque 350 (iohexol) IV ; Cumulative dose for multiple exams. ORAL CONTRAST: No oral contrast ingested. RADIATION DOSE: 5.49 CTDIvol (mGy) MEDICAL HISTORY : Cardiovascular disease. Hypertension. SURGICAL HISTORY : Orthopedic ENCOUNTER: Initial ACUITY: 1 day PAIN SCALE: 0/10 LOCATION: Abdomen TECHNIQUE: Volumetric scanning of the abdomen and pelvis was performed. Using automated exposure control and ad justment of the mA and/or kV according to patient size, radiation dose was kept as low as reasonably achievable to obtain optimal diagnostic quality images. DICOM format image data is available electro nically for review and comparison. FINDINGS: Mild ascites LOWER LUNGS: Bilateral effusions, left greater than right LIVER: Diffusely diminished attenuation may be edema or steatosis. No evidence of focal mass or biliary duct al dilatation. SPLEEN: Normal size without lesion. PANCREAS: Within normal limits. KIDNEYS: Normal in size and shape. There is no mass, stone or hydronephrosis. ADRENAL GLANDS: Within normal limits. VASCULAR: There is no aortic aneurysm. BOWEL/MESENTERY: The stomach, small bowel, and colon demonstrate no acute abnormality. There is no free intraperitone al air or fluid. ABDOMINAL WALL: Within normal limits. RETROPERITONEUM: There is no lymphadenopathy. BLADDER: No wall thickening or mass. REPRODUCTIVE: Within normal limits. INGUINAL: There is no lymphadenopathy or hernia. MUSCULOSKELETAL: Degenerative changes in the spine and hips. No acute bony findings CONCLUSION: Hepatic steatosis or edema and peritoneal ascites. Jeff Medina MD on March 27, 2018 at 17:21 Board Certified Radiologist. This report was verified electronically.
[2018-03-27] MEDS ORDERED: POTASSIUM CHLORIDE 20 MEQ CONTROLLED RELEASE TAB PO ONE (17:30)
[2018-03-27] MEDS ORDERED: FUROSEMIDE 40 MG/4 ML VIAL IV PUSH ONE ×2 (17:30→21:00)
--- NOTE | 2018-03-27 17:52 | PD ---
Data Data Last Documented VS Vital Signs Date Time Temp Pulse Resp B/P (MAP) Pulse Ox O2 Delivery O2 Flow Rate FiO2 03/27/18 15:36 99 Room Air 03/27/18 15:36 114 18 03/27/18 14:23 97.3 112/79 (90) Orders Orders Electrocardiogram (03/27/18 14:34) Complete Blood Count With Diff (03/27/18 14:34) Basic Metabolic Panel (Bmp) (03/27/18 14:34) Ckmb (Isoenzyme) Profile (03/27/18 14:34) Troponin I (03/27/18 14:34) Iv Access Insert/Monitor (03/27/18 14:34) Ecg Monitoring (03/27/18 14:34) Oxygen Administration (03/27/18 14:34) Oximetry (03/27/18 14:34) B-Type Natriuretic Peptide (03/27/18 14:34) Chest, Pa & Lat (03/27/18 ) Hepatic Functional Panel (03/27/18 15:33) Lipase (03/27/18 15:33) Us Leg Venous Doppler Bilat (03/27/18 ) Magnesium (Mg) (03/27/18 15:33) Act Partial Throm Time (Ptt) (03/27/18 15:33) Prothrombin Time / Inr (Pt) (03/27/18 15:33) CKMB (03/27/18 14:49) CKMB% (03/27/18 14:49) Ct Pulmonary Angiogram (03/27/18 ) Ct Abd/Pel W Iv Contrast(Rout) (03/27/18 ) Aspirin Chew (Aspirin Chew) (03/27/18 16:45) Furosemide Inj (Lasix Inj) (03/27/18 17:30) Potassium Chloride (Kcl) (03/27/18 17:30) Iohexol 350 Inj (Omnipaque 350 Inj) (03/27/18 13:59) Echo 2d Comp With Doppler (03/27/18 ) Admit Order (Ed Use Only) (03/27/18 17:48) Admit To Inpatient (03/27/18 ) Inpatient Certification (03/27/18 ) Diet Heart Healthy (03/27/18 Dinner) Vital Signs (Adult) BAILEE.Q4H (03/27/18 17:47) Comprehensive Metabolic Panel (03/27/18 17:50) Thyroid Stimulating Hormone (03/28/18 06:00) Labs Laboratory Tests Test 03/27/18 14:49 White Blood Count 3.6 TH/MM3 Red Blood Count 5.10 MIL/MM3 Hemoglobin 17.2 GM/DL Hematocrit 50.0 % Mean Corpuscular Volume 98.1 FL Mean Corpuscular Hemoglobin 33.8 PG Mean Corpuscular Hemoglobin Concent 34.4 % Red Cell Distribution Width 14.7 % Platelet Count 147 TH/MM3 Mean Platelet Volume 10.5 FL Neutrophils (%) (Auto) 72.6 % Lymphocytes (%) (Auto) 20.9 % Monocytes (%) (Auto) 5.2 % Eosinophils (%) (Auto) 0.4 % Basophils (%) (Auto) 0.9 % Neutrophils # (Auto) 2.6 TH/MM3 Lymphocytes # (Auto) 0.7 TH/MM3 Monocytes # (Auto) 0.2 TH/MM3 Eosinophils # (Auto) 0.0 TH/MM3 Basophils # (Auto) 0.0 TH/MM3 CBC Comment DIFF FINAL Differential Comment Blood Urea Nitrogen 18 MG/DL Creatinine 1.51 MG/DL Random Glucose 101 MG/DL Calcium Level 9.9 MG/DL Sodium Level 130 MEQ/L Potassium Level 3.3 MEQ/L Chloride Level 89 MEQ/L Carbon Dioxide Level 26.3 MEQ/L Anion Gap 15 MEQ/L Estimat Glomerular Filtration Rate 60 ML/MIN Magnesium Level 1.7 MG/DL Total Bilirubin 2.2 MG/DL Direct Bilirubin 1.1 MG/DL Indirect Bilirubin 1.1 MG/DL Aspartate Amino Transf (AST/SGOT) 69 U/L Alanine Aminotransferase (ALT/SGPT) 50 U/L Alkaline Phosphatase 254 U/L Total Creatine Kinase 198 U/L Creatine Kinase MB 3.3 NG/ML Troponin I 0.12 NG/ML B-Type Natriuretic Peptide 2196 PG/ML Total Protein 9.1 GM/DL Albumin 4.5 GM/DL Lipase 467 U/L MDM Supervised Visit with [facility]: Yes Narrative Course I, Dr. Keenan, have reviewed the advance practice practitioner's documentation and am in agreement, met with the patient face to face, made the diagnosis, and the medical decision making was done by me. *My assessment and Findings: Patient will be admitted. He presents with CHF/ anasarca-like findings. Extensive workup was conducted. Case reviewed with hospitalist Diagnosis Primary Impression: CHF (congestive heart failure) Qualified Codes: I50.9 - Heart failure, unspecified Additional Impressions: Ascites Qualified Codes: R18.8 - Other ascites Elevated troponin Vikram Keenan MD March 27, 2018 17:52
[2018-03-27 18:12] VITALS: BP 138/71; PULSE 113; RESP 18; O2SAT 100
[2018-03-27 19:30] VITALS: BP 156/90; PULSE 123; RESP 16; TEMP 97.3; O2SAT 94
--- NOTE | 2018-03-27 19:46 | HHI.HP ---
HPI Service [facility] Primary Care Physician [facility] Admission Diagnosis new onset CHF, elevated troponin, ascites Diagnoses: Chief Complaint: Lower extremity edema, shortness of breath. Travel History International Travel<30 Days: No Contact w/Intl Traveler <30 Da: No Traveled to Known Affected Are: No History of Present Illness Mr. George is a pleasant 52-year-old -[place]ian with a history of hypertension, substance abuse, alcohol abuse who presents to the emergency department due to 2 week duration of shortness of breath, orthopnea, lower extremity edema. [facility]. Patient reports significant orthopnea and nonproductive cough. He is unable to walk from his home to his mailbox without getting short of breath. He denies any pre-existing cardiac disease history. He denies any chest pain, fever or chills. No changes in bowel or bladder habits. Review of Systems Except as stated in HPI: all other systems reviewed are Neg Past Family Social History Past Medical History Anxiety, hypertension, PTSD, gout Past Surgical History Ankle surgery Reported Medications Allopurinol 300 Mg Tab 300 Mg PO DAILY Allergies: Coded Allergies: lisinopril (Verified Allergy, Severe, 10/15/17) angioedema Family History Sister had ESRD and was on dialysis. Social History Alcohol Use: Yes (2-3 DRINKS PER DAY, BEER OR MIXED DRINK) Tobacco Use: Yes (1 PPD) Substance Use: Yes (Cocaine, marijuana) Physical Exam Vital Signs Vital Signs Date Time Temp Pulse Resp B/P (MAP) Pulse Ox O2 Delivery O2 Flow Rate FiO2 03/27/18 18:12 113 18 138/71 (93) 100 Room Air 03/27/18 15:36 99 Room Air 03/27/18 15:36 114 18 97 Room Air 03/27/18 15:32 115 18 99 Room Air 03/27/18 14:23 97.3 117 20 112/79 (90) 98 Physical Exam GENERAL: This is a well-nourished, well-developed patient, in no apparent distress. Currently on room air. SKIN: No rashes, ecchymoses or lesions. Warm and dry. HEAD: Atraumatic. Normocephalic. No temporal or scalp tenderness. EYES: Pupils equal round and reactive. No injection or drainage. ENT: Nose without bleeding, purulent drainage or septal hematoma. Airway patent. NECK: Trachea midline. No lymphadenopathy. Supple, nontender, no meningeal signs. CARDIOVASCULAR: Regular rhythm, tachycardic without murmurs, gallops, or rubs. No JVD. RESPIRATORY: Moderate air entry. No wheezes. Bibasilar crackles noted. GASTROINTESTINAL: Abdomen soft, non-tender, nondistended. No guarding. MUSCULOSKELETAL: Extremities without clubbing, cyanosis. Lower extremity 2+ edema. NEUROLOGICAL: Awake and alert. Cranial nerves II through XII intact. No focal neurological deficits. Normal speech. Laboratory Laboratory Tests Test 03/27/18 14:49 03/27/18 19:26 White Blood Count 3.6 Red Blood Count 5.10 Hemoglobin 17.2 Hematocrit 50.0 Mean Corpuscular Volume 98.1 Mean Corpuscular Hemoglobin 33.8 Mean Corpuscular Hemoglobin Concent 34.4 Red Cell Distribution Width 14.7 Platelet Count 147 Mean Platelet Volume 10.5 Neutrophils (%) (Auto) 72.6 Lymphocytes (%) (Auto) 20.9 Monocytes (%) (Auto) 5.2 Eosinophils (%) (Auto) 0.4 Basophils (%) (Auto) 0.9 Neutrophils # (Auto) 2.6 Lymphocytes # (Auto) 0.7 Monocytes # (Auto) 0.2 Eosinophils # (Auto) 0.0 Basophils # (Auto) 0.0 CBC Comment DIFF FINAL Differential Comment Blood Urea Nitrogen 18 Creatinine 1.51 Random Glucose 101 Calcium Level 9.9 Sodium Level 130 Potassium Level 3.3 Chloride Level 89 Carbon Dioxide Level 26.3 Anion Gap 15 Estimat Glomerular Filtration Rate 60 Magnesium Level 1.7 Total Bilirubin 2.2 Direct Bilirubin 1.1 Indirect Bilirubin 1.1 Aspartate Amino Transf (AST/SGOT) 69 Alanine Aminotransferase (ALT/SGPT) 50 Alkaline Phosphatase 254 Total Creatine Kinase 198 Creatine Kinase MB 3.3 Troponin I 0.12 B-Type Natriuretic Peptide 2196 Total Protein 9.1 Albumin 4.5 Lipase 467 Result Diagram: 03/27/18 1449 03/27/18 1449 Imaging Last Impressions Lower Extremity Ultrasound 03/27/18 0000 Signed Impressions: Service Date/Time: Tuesday, March 27, 2018 16:14 - CONCLUSION: Negative exam. No sonographic or Doppler findings of deep venous thrombosis. Eamon Dallas MD Chest X-Ray 03/27/18 0000 Signed Impressions: Service Date/Time: Tuesday, March 27, 2018 15:01 - CONCLUSION: Slight left base infiltrate and effusion Jeff Medina MD CT Angiography 03/27/18 0000 Signed Impressions: Service Date/Time: Tuesday, March 27, 2018 16:50 - CONCLUSION: No evidence of pulmonary embolism Jeff Medina MD Abdomen/Pelvis CT 03/27/18 0000 Signed Impressions: Service Date/Time: Tuesday, March 27, 2018 16:50 - CONCLUSION: Hepatic steatosis or edema and peritoneal ascites. MD Ej Blanchard VTE Risk Assessment Caprini VTE Risk Assessment: Mod/High Risk (score >= 2) Caprini Risk Assessment Model Point Value = 1 Point Value = 2 Point Value = 3 Point Value = 5 Age 41-60 Minor surgery BMI > 25 kg/m2 Swollen legs Varicose veins or History of unexplained or recurrent spontaneous Oral contraceptives or hormone replacement Sepsis (< 1 month) Serious lung disease, including pneumonia (< 1 month) Abnormal pulmonary function Acute myocardial infarction Congestive heart failure (< 1 month) History of inflammatory bowel disease Medical patient at bed rest Age 61-74 Arthroscopic surgery Major open surgery (> 45 min) Laparoscopic surgery (> 45 min) Malignancy Confined to bed (> 72 hours) Immobilizing plaster cast Central venous access Age >= 75 History of VTE Family history of VTE Factor V Leiden Prothrombin [id number] Lupus anticoagulant Anticardiolipin antibodies Elevated serum homocysteine Heparin-induced thrombocytopenia Other congenital or acquired thrombophilia Stroke (< 1 month) Elective arthroplasty Hip, pelvis, or leg fracture Acute spinal cord injury (< 1 month) Prophylaxis Regimen Total Risk Factor Score Risk Level Prophylaxis Regimen 0-1 Low Early ambulation 2 Moderate Order ONE of the following: *Sequential Compression Device (SCD) *Heparin 5000 units SQ BID 3-4 Higher Order ONE of the following medications: *Heparin 5000 units SQ TID *Enoxaparin/Lovenox 40 mg SQ daily (WT < 150 kg, CrCl > 30 mL/min) *Enoxaparin/Lovenox 30 mg SQ daily (WT < 150 kg, CrCl > 10-29 mL/min) *Enoxaparin/Lovenox 30 mg SQ BID (WT < 150 kg, CrCl > 30 mL/min) AND/OR *Sequential Compression Device (SCD) 5 or more Highest Order ONE of the following medications: *Heparin 5000 units SQ TID (Preferred with Epidurals) *Enoxaparin/Lovenox 40 mg SQ daily (WT < 150 kg, CrCl > 30 mL/min) *Enoxaparin/Lovenox 30 mg SQ daily (WT < 150 kg, CrCl > 10-29 mL/min) *Enoxaparin/Lovenox 30 mg SQ BID (WT < 150 kg, CrCl > 30 mL/min) AND *Sequential Compression Device (SCD) Assessment and Plan Problem List: (1) CHF (congestive heart failure) ICD Code: I50.9 - Heart failure, unspecified Status: Acute (2) Elevated troponin ICD Code: R74.8 - Abnormal levels of other serum enzymes Status: Acute (3) PAZ (acute kidney injury) ICD Code: N17.9 - Acute kidney failure, unspecified (4) CKD (chronic kidney disease) stage 2, GFR 60-89 ml/min ICD Code: N18.2 - Chronic kidney disease, stage 2 (mild) Assessment and Plan Mr. George is a pleasant 52-year-old with a history of tobacco use, alcohol use and substance abuse who presents to the emergency department on the advice of his [place] provider due to 2 week duration of shortness of breath, orthopnea and lower extremity edema. Probable congestive heart failure -possibly systolic. -BNP 2196. -Patient received Lasix 40 mg IV in the ED. Will give another 40 mg today. And continue 40 mg twice daily. -Consider Torsemide PO upon discharge. -No beta-elis or calcium channel elis due to acute congestive heart failure. -We will obtain 2D echo tomorrow. -Currently on room air. Supplemental oxygen to keep O2 saturation around 90% . Elevated troponin - likely due to congestive heart failure. We will trended. Patient received aspirin 162 mg. Acute kidney injury CKD stage II Hypomagnesemia Hypokalemia Hyponatremia -Creatinine 1.53. Will continue Lasix which may transiently increase creatinine. -However with better perfusion creatinine might improve as well. -Potassium was corrected. Will give 2 g of magnesium sulfate. Probable Alcoholic liver disease -CT abd/pelvis shows hepatic steatosis, ascites. -We will obtain liver ultrasound. Alcohol abuse Tobacco abuse Cocaine abuse Marijuana abuse -Patient counseled regarding substance abuse. Will start CIWA protocol. Full code. Charlene. Physician Certification 2 Midnight Certification Type: Admission for Inpatient Services Order for Inpatient Services The services are ordered in accordance with Medicare regulations or non- Medicare payer requirements, as applicable. In the case of services not specified as inpatient-only, they are appropriately provided as inpatient services in accordance with the 2-midnight benchmark. Estimated LOS (days): 2 days is the estimated time the patient will need to remain in the hospital, assuming treatment plan goals are met and no additional complications. Post-Hospital Plan: Home Problem Qualifiers (1) CHF (congestive heart failure): Qualified Codes: I50.9 - Heart failure, unspecified Allison Bender DO March 27, 2018 19:46
[2018-03-27 19:55] LABS: ALBUMIN 3.6 GM/DL (3.4-5.0); ALKALINE PHOSPHATASE 213 U/L (45-117); ALT (GPT) 41 U/L (12-78); AST (GOT) 59 U/L (15-37); BICARBONATE 27.9 MEQ/L (21.0-32.0); BLOOD UREA NITROGEN 18 MG/DL (7-18); CALCIUM 8.7 MG/DL (8.5-10.1); CHLORIDE 91 MEQ/L (98-107); CREATININE 1.53 MG/DL (0.60-1.30); GLOMERULAR FILTRATION RATE 59 ML/MIN (>89); GLUCOSE,RANDOM 83 MG/DL (74-106); SODIUM (NA) 130 MEQ/L (136-145); TOTAL BILIRUBIN ADULT 1.8 MG/DL (0.2-1.0); TOTAL PROTEIN 7.6 GM/DL (6.4-8.2)
[2018-03-27 20:03] LABS: INTERNATIONAL NORMALIZED RATIO 1.2 RATIO
[2018-03-27] MEDS: MAGNESIUM SULFATE 1 GM PREMIX 100 ML IV SCH ×2 (20:31→21:22)
[2018-03-27] MEDS ORDERED: RESP: IPRATROPIUM 0.5 MG/2.5 ML NEB NEB PRN (21:00)
[2018-03-27] MEDS ORDERED: LORazepam 1 MG TAB PO PRN (21:15)
[2018-03-27] MEDS ORDERED: LORazepam 2 MG/ML VIAL IV PUSH PRN ×4 (21:15)
[2018-03-27] MEDS ORDERED: FLUMAZENIL 0.5 MG/5 ML VIAL IV PUSH PRN (21:15)
[2018-03-27] MEDS ORDERED: LORazepam 2 MG TAB PO PRN (21:15)
[2018-03-27] MEDS: ENOXAPARIN SODIUM 40 MG/0.4 ML SYRINGE SQ SCH (21:22)
[2018-03-27] MEDS: TEMAZEPAM 15 MG CAP PO PRN (22:38)
[2018-03-27 23:50] VITALS: BP 105/82; PULSE 118; RESP 18; TEMP 97.6; O2SAT 97
[2018-03-28] VITALS (10 sets, daily range): BP systolic 113–131; BP diastolic 72–85; PULSE 107–120; RESP 16–20; TEMP 97.1–98.3; O2SAT 94–100
[2018-03-28 03:00] LABS: CHOLESTEROL/ HDL RATIO 1.94 RATIO; HDL CHOLESTEROL 66.2 MG/DL (40.0-60.0); TROPONIN I 0.13 NG/ML (0.02-0.05)
[2018-03-28] MEDS: FUROSEMIDE 40 MG/4 ML VIAL IV PUSH SCH ×2 (08:43→17:42)
[2018-03-28] MEDS: POTASSIUM CHLORIDE 10 MEQ CONTROLLED RELEASE TAB PO SCH (09:06)
--- NOTE | 2018-03-28 09:10 | HHI.PR ---
Subjective Remarks in no acute distress. says that his sob is better. still with bilateral leg swelling. d/w the RN. Objective Vitals Vital Signs Date Time Temp Pulse Resp B/P (MAP) Pulse Ox O2 Delivery O2 Flow Rate FiO2 03/28/18 08:30 98.1 107 18 122/84 (97) 96 03/28/18 04:25 97.1 110 18 131/75 (93) 99 03/28/18 04:00 111 03/28/18 01:26 112 03/27/18 23:50 97.6 118 18 105/82 (90) 97 03/27/18 19:30 97.3 123 16 156/90 (112) 94 03/27/18 18:12 113 18 138/71 (93) 100 Room Air 03/27/18 15:36 99 Room Air 03/27/18 15:36 114 18 97 Room Air 03/27/18 15:32 115 18 99 Room Air 03/27/18 14:23 97.3 117 20 112/79 (90) 98 I/O 03/27/18 03/27/18 03/27/18 03/28/18 03/28/18 03/28/18 06:59 14:59 22:59 06:59 14:59 22:59 Intake Total 200 ml 480 ml Output Total 450 ml Balance 200 ml 30 ml Intake Oral 480 ml IV Total 200 ml Output Urine Total 450 ml # Voids 1 # Bowel Movements 1 Result Diagram: 03/27/18 1449 03/27/18 1926 Imaging Last Impressions Lower Extremity Ultrasound 03/27/18 0000 Signed Impressions: Service Date/Time: Tuesday, March 27, 2018 16:14 - CONCLUSION: Negative exam. No sonographic or Doppler findings of deep venous thrombosis. Eamon Dallas MD Chest X-Ray 03/27/18 0000 Signed Impressions: Service Date/Time: Tuesday, March 27, 2018 15:01 - CONCLUSION: Slight left base infiltrate and effusion Jeff Medina MD CT Angiography 03/27/18 0000 Signed Impressions: Service Date/Time: Tuesday, March 27, 2018 16:50 - CONCLUSION: No evidence of pulmonary embolism Jeff Medina MD Abdomen/Pelvis CT 03/27/18 0000 Signed Impressions: Service Date/Time: Kashif, March 27, 2018 16:50 - CONCLUSION: Hepatic steatosis or edema and peritoneal ascites. Jeff Medina MD Objective Remarks GENERAL: This is a well-nourished, well-developed patient, in no apparent distress. CARDIOVASCULAR: Regular rate and regular rhythm without murmurs, gallops, or rubs. RESPIRATORY: diminished air entry in bases. GASTROINTESTINAL: Abdomen soft, non-tender, nondistended. Normal, active bowel sounds MUSCULOSKELETAL: Extremities with bilateral pedal edema. NEURO: Alert & Oriented x4 to person, place, time, situation. Moves all ext x4 Medications and IVs Inpatient Medications Aspirin (Aspirin Chew) 162 mg ONCE ONCE CHEW Last administered on 03/27/18at 17 :43; Start 03/27/18 at 16:45; Stop 03/27/18 at 16:46; Status DC Enoxaparin Sodium (Lovenox Inj) 40 mg Q24H SQ Last administered on 03/27/18at 21 :22; Start 03/27/18 at 22:00 Flumazenil (Romazicon Inj) 0.2 mg Q1M PRN IV PUSH SEE LABEL COMMENTS; Start at 21:15 Furosemide (Lasix Inj) 40 mg ONCE ONCE IV PUSH Last administered on 03/27/18at 21:22; Start 03/27/18 at 21:00; Stop 03/27/18 at 21:01; Status DC Ipratropium [place] (Atrovent Neb) 0.5 mg Q4HR NEB PRN NEB Dyspnea; Start 03/27 at 21:00 Lorazepam (Ativan Inj) 2 mg Q15M PRN IV PUSH CIWA > 20; Start 03/27/18 at 21:15 Lorazepam (Ativan) 2 mg Q2H PRN PO CIWA 11-14; Start 03/27/18 at 21:15 Magnesium Sulfate/ Dextrose 100 ml @ 100 mls/hr Q1H IV Last administered on at 21:22; Start 03/27/18 at 20:00; Stop 03/27/18 at 21:59; Status DC Potassium Chloride (KCl) 10 meq DAILY PO ; Start 03/28/18 at 09:00 Temazepam (Restoril) 15 mg HS PRN PO INSOMNIA Last administered on 03/27/18at 22 :38; Start 03/27/18 at 21:00 A/P Problem List: (1) CHF (congestive heart failure) ICD Code: I50.9 - Heart failure, unspecified Status: Acute (2) Elevated troponin ICD Code: R74.8 - Abnormal levels of other serum enzymes Status: Acute (3) PAZ (acute kidney injury) ICD Code: N17.9 - Acute kidney failure, unspecified (4) CKD (chronic kidney disease) stage 2, GFR 60-89 ml/min ICD Code: N18.2 - Chronic kidney disease, stage 2 (mild) Assessment and Plan A/P Probable congestive heart failure - -BNP 2196. -continue Lasix -Consider Torsemide PO upon discharge. -No beta-elis or calcium channel elis due to acute congestive heart failure. -We will obtain 2D echo. will consider cardiology evaluation- pending the echo result. -Currently on room air. Supplemental oxygen to keep O2 saturation around 90% . Elevated troponin - likely due to congestive heart failure. no chest pain. Acute kidney injury CKD stage II Hypomagnesemia Hypokalemia Hyponatremia -Creatinine 1.53. Will continue Lasix which may transiently increase creatinine. -However with better perfusion creatinine might improve as well. -Potassium was corrected. -continue to monitor electrolytes. Probable Alcoholic liver disease -CT abd/pelvis shows hepatic steatosis, ascites. -We will obtain liver ultrasound. Alcohol abuse Tobacco abuse Cocaine abuse Marijuana abuse -Patient counseled regarding substance abuse. Will start CIWA protocol. Full code. Lovenox. Discharge Planning discharge in one-two days- pending clinical improvement and result of w/u. Problem Qualifiers (1) CHF (congestive heart failure): Qualified Codes: I50.9 - Heart failure, unspecified Martin Baltazar MD March 28, 2018 09:10
--- NOTE | 2018-03-28 13:20 | RADRPT ---
EXAM DATE: 03/28/2018 12:55 PM EDT AGE/SEX: 52 years / Male INDICATIONS: Increased lab values. CLINICAL DATA: This is the patient's initial encounter. Patient reports that signs and symptoms have been present for 2 days and indicates a pain score of 0/10. MEDICAL/SURGICAL HISTORY: Congestive heart failure. Hypertension. Dyspnea. Gout. Post Traumati c Stress disorder. . Ankle surgery. COMPARISON: No prior [facility] exams available for comparison. No external comparison. MEASUREMENTS (cm x cm x cm): Liver:__ 18.4 cm length Common Bile Duct:__ 5mm Right Kidney:__ 10.7 x 5.7 x 4.1 cm Spleen:__ 7.7 FINDINGS: Liver: Normal echotexture without focal lesion or ductal dilatation. There is a small amount of asc ites around the liver. Portal Vein: Hepatopedal flow seen in portal vein. Common Duct: No intraluminal mass or stone visualized. Gallbladder: There is some thickening of the gallbladder wall at 6 mm. Stones visulaized. There is a trace of fluid around the gallbladder. Pancreas: The visualized portions are within normal limits. Right Kidney: No mass or hydronephrosis. Measures CONCLUSION: 1. There are gallstones in the gallbladder. There is some thickening of the gallbladder wall with a trace of fluid around the gallbladder. This can be seen with either acute or chronic cholecystitis. R ecommend correlation with patient's clinical exam and laboratory values. 2. Small amount of ascites adjacent to the liver. Electronically signed by: Reuben Urrutia MD 03/28/2018 1:18 PM EDT
--- NOTE | 2018-03-28 13:34 | RADRPT ---
EXAM DATE: 03/28/2018 12:58 PM EDT AGE/SEX: 52 years / Male INDICATIONS: Ascites. CLINICAL DATA: This is the patient's initial encounter. Patient reports that signs and symptoms have been present for 2 days and indicates a pain score of 0/10. MEDICAL/SURGICAL HISTORY: Congestive heart failure. Hypertension. Dyspnea. Gout. Post traumati c stress disorder. . Ankle surgery. COMPARISON: No prior [facility] exams available for comparison. No external comparison. FINDINGS: There is trace amount ascites with fluid primarily near the dome of the liver and trace fluid in the right lower quadrant. Overall, there is insufficient volume for safe paracentesis at this time. CONCLUSION: 1. Trace ascites with insufficient volume for safe paracentesis at this time. Electronically signed by: Kaushik Bonds MD 03/28/2018 1:33 PM EDT
--- NOTE | 2018-03-28 17:06 | EKG ---
Date Performed: 03/27/2018 Time Performed: 16:04:50 PTAGE: 52 years EKG: SINUS TACHYCARDIA LEFT ATRIAL ENLARGEMENT ST ELEVATION, PROBABLY EARLY REPOLARIZATION ABNOR MAL QRS-T ANGLE ABNORMAL ECG PREVIOUS TRACING : 11/24/2006 20.25 Since the previous tracing, no significant change noted DOCTOR: Graeme Shields Interpretating Date/Time 03/28/2018 17:05:07
[2018-03-28] MEDS: ENOXAPARIN SODIUM 40 MG/0.4 ML SYRINGE SQ SCH (22:17)
[2018-03-28] MEDS: TEMAZEPAM 15 MG CAP PO PRN (22:18)
[2018-03-29] VITALS (11 sets, daily range): BP systolic 105–127; BP diastolic 74–86; PULSE 100–118; RESP 16–20; TEMP 97.3–98; O2SAT 98–100
[2018-03-29 08:15] LABS: BICARBONATE 27.1 MEQ/L (21.0-32.0); CREATININE 1.34 MG/DL (0.60-1.30)
[2018-03-29] MEDS: POTASSIUM CHLORIDE 10 MEQ CONTROLLED RELEASE TAB PO SCH ×2 (08:57→21:36)
[2018-03-29] MEDS: FUROSEMIDE 40 MG/4 ML VIAL IV PUSH SCH ×2 (08:57→17:01)
--- NOTE | 2018-03-29 10:27 | HHI.PR ---
Subjective Remarks in no acute distress. no sob. still with bilateral pedal edema. Objective Vitals Vital Signs Date Time Temp Pulse Resp B/P (MAP) Pulse Ox O2 Delivery O2 Flow Rate FiO2 03/29/18 08:01 97.8 104 18 105/81 (89) 100 03/29/18 08:00 Nasal Cannula 2.00 03/29/18 04:42 Nasal Cannula 2.00 03/29/18 04:42 100 03/29/18 04:00 113 03/29/18 03:53 97.4 114 16 118/84 (95) 100 03/29/18 00:15 97.3 109 16 127/86 (100) 100 03/29/18 00:01 118 03/28/18 22:00 Nasal Cannula 2.00 03/28/18 21:00 97.7 120 16 121/72 (88) 99 03/28/18 20:00 119 03/28/18 16:10 97.7 109 18 119/81 (94) 100 03/28/18 15:55 118 03/28/18 12:30 98.3 110 20 113/85 (94) 94 03/28/18 12:01 112 I/O 03/28/18 03/28/18 03/28/18 03/29/18 03/29/18 03/29/18 06:59 14:59 22:59 06:59 14:59 22:59 Intake Total 480 ml 740 ml 720 ml Output Total 450 ml 1700 ml 250 ml Balance 30 ml -960 ml 470 ml Intake Oral 480 ml 740 ml 720 ml Output Urine Total 450 ml 1700 ml 250 ml # Voids 1 7 # Bowel Movements 1 3 6 Result Diagram: 03/27/18 1449 03/29/18 0400 Imaging Last Impressions Liver Ultrasound 03/28/18 0000 Signed Impressions: CONCLUSION: Abdomen Ultrasound 03/28/18 0000 Signed Impressions: CONCLUSION: Lower Extremity Ultrasound 03/27/18 0000 Signed Impressions: Service Date/Time: Tuesday, March 27, 2018 16:14 - CONCLUSION: Negative exam. No sonographic or Doppler findings of deep venous thrombosis. Eamon Dallas MD Chest X-Ray 03/27/18 0000 Signed Impressions: Service Date/Time: Tuesday, March 27, 2018 15:01 - CONCLUSION: Slight left base infiltrate and effusion Jeff Medina MD CT Angiography 03/27/18 0000 Signed Impressions: Service Date/Time: Tuesday, March 27, 2018 16:50 - CONCLUSION: No evidence of pulmonary embolism Jeff Medina MD Abdomen/Pelvis CT 03/27/18 0000 Signed Impressions: Service Date/Time: Tuesday, March 27, 2018 16:50 - CONCLUSION: Hepatic steatosis or edema and peritoneal ascites. Jeff Medina MD Objective Remarks GENERAL: This is a well-nourished, well-developed patient, in no apparent distress. CARDIOVASCULAR: Regular rate and regular rhythm without murmurs, gallops, or rubs. RESPIRATORY: diminished air entry in bases. GASTROINTESTINAL: Abdomen soft, non-tender, nondistended. Normal, active bowel sounds MUSCULOSKELETAL: Extremities with bilateral pedal edema. NEURO: Alert & Oriented x4 to person, place, time, situation. Moves all ext x4 Medications and IVs Inpatient Medications Aspirin (Aspirin Chew) 162 mg ONCE ONCE CHEW Last administered on 03/27/18at 17 :43; Start 03/27/18 at 16:45; Stop 03/27/18 at 16:46; Status DC Enoxaparin Sodium (Lovenox Inj) 40 mg Q24H SQ Last administered on 03/28/18at 22 :17; Start 03/27/18 at 22:00 Flumazenil (Romazicon Inj) 0.2 mg Q1M PRN IV PUSH SEE LABEL COMMENTS; Start at 21:15 Furosemide (Lasix Inj) 40 mg ONCE ONCE IV PUSH Last administered on 03/27/18at 21:22; Start 03/27/18 at 21:00; Stop 03/27/18 at 21:01; Status DC Ipratropium [place] (Atrovent Neb) 0.5 mg Q4HR NEB PRN NEB Dyspnea; Start 03/27 at 21:00 Lorazepam (Ativan Inj) 2 mg Q15M PRN IV PUSH CIWA > 20; Start 03/27/18 at 21:15 Lorazepam (Ativan) 2 mg Q2H PRN PO CIWA 11-14; Start 03/27/18 at 21:15 Magnesium Sulfate/ Dextrose 100 ml @ 100 mls/hr Q1H IV Last administered on at 21:22; Start 03/27/18 at 20:00; Stop 03/27/18 at 21:59; Status DC Potassium Chloride (KCl) 10 meq DAILY PO Last administered on 03/29/18at 08:57; Start 03/28/18 at 09:00 Temazepam (Restoril) 15 mg HS PRN PO INSOMNIA Last administered on 03/28/18at 22 :18; Start 03/27/18 at 21:00 A/P Problem List: (1) CHF (congestive heart failure) ICD Code: I50.9 - Heart failure, unspecified Status: Acute (2) Elevated troponin ICD Code: R74.8 - Abnormal levels of other serum enzymes Status: Acute (3) PAZ (acute kidney injury) ICD Code: N17.9 - Acute kidney failure, unspecified (4) CKD (chronic kidney disease) stage 2, GFR 60-89 ml/min ICD Code: N18.2 - Chronic kidney disease, stage 2 (mild) Assessment and Plan A/P Probable congestive heart failure - -BNP 2196. -continue Lasix -Consider Torsemide PO upon discharge. -No beta-elis or calcium channel elis due to acute congestive heart failure. -echo pending. will consider cardiology evaluation- pending the echo result. -Currently on room air. Supplemental oxygen to keep O2 saturation around 90% . Elevated troponin - likely due to congestive heart failure. no chest pain. Acute kidney injury CKD stage II Hypomagnesemia Hypokalemia Hyponatremia - Will continue Lasix which may transiently increase creatinine. -However with better perfusion creatinine might improve as well. -Potassium was corrected. -continue to monitor electrolytes. Probable Alcoholic liver disease -CT abd/pelvis shows hepatic steatosis, ascites. -liver US with trace ascites and gallstones- clinically no evidence of acute cholecystitis. Alcohol abuse Tobacco abuse Cocaine abuse Marijuana abuse -Patient counseled regarding substance abuse. Will start CIWA protocol. Full code. Lovenox. Discharge Planning discharge in one-two days- pending clinical improvement and result of echo. Problem Qualifiers (1) CHF (congestive heart failure): Qualified Codes: I50.9 - Heart failure, unspecified Martin Baltazar MD March 29, 2018 10:27
--- NOTE | 2018-03-29 13:35 | ECHRPT ---
Indication: HEART FAILURE CONCLUSIONS Moderately dilated left ventricle. Wall thickness is normal. The left ventricular systolic function is severely reduced with an estimated ejection fraction in th e range of 20-25%. The left atrial size is mildly dilated. Mitral annular calcification is present. Moderate mitral valve regurgitation. Trace aortic valve regurgitation. The pulmonary valve is not well visualized. There is a trivial pericardial effusion present. BP: / HR: Rhythm: MEASUREMENTS (Male / Female) Normal Values Technical Quality: 2D ECHO LV Diastolic Diameter PLAX 5.6 cm 4.2 - 5.9 / 3.9 - 5.3 cm LV Systolic Diameter PLAX 5.1 cm IVS Diastolic Thickness 0.9 cm 0.6 - 1.0 / 0.6 - 0.9 cm LVPW Diastolic Thickness 1.1 cm 0.6 - 1.0 / 0.6 - 0.9 cm LV Relative Wall Thickness 0.3 LA Systolic Diameter LX 4.1 cm 3.0 - 4.0 / 2.7 - 3.8 cm M-MODE Aortic Root Diameter MM 2.9 cm AV Cusp Separation MM 1.7 cm DOPPLER Mitral E Point Velocity 86.4 cm/s Mitral A Point Velocity 43.8 cm/s Mitral E to A Ratio 2.0 TR Peak Velocity 305.0 cm/s TR Peak Gradient 37.2 mmHg FINDINGS LEFT VENTRICLE Moderately dilated left ventricle. Wall thickness is normal. The left ventricular systolic function is severely reduced with an estimated ejection fraction in th e range of 20-25%. RIGHT VENTRICLE Normal right ventricular size and systolic function. LEFT ATRIUM The left atrial size is mildly dilated. RIGHT ATRIUM The right atrial size is normal. ATRIAL SEPTUM Normal atrial septal thickness without atrial level shunting by limited color doppler interrogation. AORTA The aortic root and proximal ascending aorta are normal in size on limited imaging. MITRAL VALVE Mitral annular calcification is present. Moderate mitral valve regurgitation. AORTIC VALVE Trace aortic valve regurgitation. TRICUSPID VALVE Structurally normal tricuspid valve. No tricuspid valve stenosis or regurgitation. PULMONARY VALVE The pulmonary valve is not well visualized. VESSELS The inferior vena cava is normal in size. PERICARDIUM There is a trivial pericardial effusion present. Juaquin Barnes MD, FACC (Electronically Signed) Final Date:29 Mar 2018 13:34 Amended: 29 Mar 2018 15:29
[2018-03-29] MEDS ORDERED: ACETAMINOPHEN 325 MG TAB PO PRN (14:15)
[2018-03-29] MEDS: ACETAMINOPHEN/HYDROcodone 325 MG/5 MG TAB PO PRN ×2 (15:32→21:36)
[2018-03-29] MEDS ORDERED: DEFIB EXTERNAL (15:55)
--- NOTE | 2018-03-29 16:25 | MB ---
cc: Juaquin Barnes MD DATE: 03/29/2018 INDICATION: Congestive heart failure. HISTORY OF PRESENT ILLNESS: This is a 52-year-old gentleman who has a history of hypertension in addition to alcohol and substance abuse, who presented to the Emergency Department upon referral from the [facility] due to progressive symptoms of shortness of breath and orthopnea. The patient states over the course of the past few weeks he has had a productive cough and shortness of breath. He states that even walking as far as the mailbox he is getting short of breath. He did also note that he had edema. Denies any chest pain. An echocardiogram performed at the [facility] apparently showed reduced left ventricular systolic function. He has been on hydrochlorothiazide for blood pressure, but still retaining fluid. He was referred over for evaluation. He was initiated on intravenous diuretic therapy. Transthoracic echocardiogram was performed, which showed severely reduced left ventricular systolic function with an ejection fraction between 20 and 25%. Symptomatically, he has been doing better. We are consulted for further recommendations. PAST MEDICAL HISTORY: Anxiety, hypertension, PTSD, gout. MEDICATIONS: Reported medications: Allopurinol. ALLERGIES: LISINOPRIL. SOCIAL HISTORY: Reports drinks 3 drinks per day, as well as a pack a day, does report history of cocaine and marijuana use. REVIEW OF SYSTEMS: A 12-point review of systems was performed and negative unless otherwise noted in the history of present illness. PHYSICAL EXAMINATION: VITAL SIGNS: Temperature is 97, pulse is 111, blood pressure 117/74 mmHg. GENERAL: Alert and oriented x3, no acute distress. HEENT: Pupils are round and reactive to light and accommodation. Extraocular movements are intact. NECK: Jugular veins are mildly distended. CARDIOVASCULAR: Regular, but tachycardic. No murmurs, rubs or gallops. ABDOMEN: Nontender, nondistended. Good bowel sounds. No hepatosplenomegaly. LUNGS: Clear to auscultation bilaterally. Bibasilar crackles. EXTREMITIES: Show no clubbing, cyanosis or edema. Good peripheral pulses. NEUROLOGIC: Cranial nerves intact. Motor, sensory grossly intact. LABORATORY DATA: WBC 3.6, hemoglobin 17.2, platelet count 147. INR is 1.2. Sodium 131, potassium 3.5, BUN is 18, creatinine is 1.34. Troponin 0.13. Electrocardiogram: Sinus tachycardia. Does have an incomplete left bundle branch block with some T-wave inversions in the anterolateral leads. ASSESSMENT: 1. Acute systolic congestive heart failure. 2. [place] Heart [employer] class III. 3. Cardiomyopathy, unclear etiology, ischemic versus nonischemic. 4. Sinus tachycardia. 5. Hypertension, hyperlipidemia, alcohol, substance abuse. PLAN: Clinically he seems to be improving with diuretic therapy. We will monitor his creatinine and electrolytes closely. He will need to be initiated on guideline directed medical therapy with REINIER inhibitor and may consider low-dose beta elis, since he is more compensated now. We will need to rule out ischemic etiology, particularly with his abnormal electrocardiogram. We will start with a Lexiscan. If that shows a reversible defect, then he is likely going to need cardiac catheterization. I do suspect that nonischemic etiology is more likely, especially given his alcohol abuse history. No recent viral syndrome. Since he is clinically improving, if his Lexiscan is negative, he may be potentially able to be discharged with outpatient followup. Given his increased risk for malignant arrhythmia, may need to consider automatic external cardioverter defibrillator. We will make arrangements for the wearable [employer]. Juaquin Barnes MD GERARDO/TL , 03:54 PM , 04:23 PM
[2018-03-29] MEDS: ENOXAPARIN SODIUM 40 MG/0.4 ML SYRINGE SQ SCH (21:36)
[2018-03-29] MEDS: TEMAZEPAM 15 MG CAP PO PRN (21:36)
[2018-03-30] VITALS (10 sets, daily range): BP systolic 101–127; BP diastolic 74–94; PULSE 101–117; RESP 16–20; TEMP 97.3–97.6; O2SAT 96–100
[2018-03-30] MEDS: ACETAMINOPHEN/HYDROcodone 325 MG/5 MG TAB PO PRN ×2 (03:40→19:06)
--- NOTE | 2018-03-30 07:55 | PD.CARD.PN ---
Subjective Subjective Remarks patient reports SOB with exertion and continued pedal edema. no chest pain. (Liz Colon) Objective Medications Current Medications Medications (Trade) Dose Ordered Sig/Glenn Route Start Time Stop Time Status Last Admin (Lasix Inj) 40 mg BID@ IV PUSH 03/28/18 09:00 03/29/18 17:01 (Restoril) 15 mg HS PRN PO 03/27/18 21:00 03/29/18 21:36 (Atrovent Neb) 0.5 mg Q4HR NEB PRN NEB 03/27/18 21:00 (Lovenox Inj) 40 mg Q24H SQ 03/27/18 22:00 03/29/18 21:36 (Romazicon Inj) 0.2 mg Q1M PRN IV PUSH 03/27/18 21:15 (Ativan) 1 mg Q4H PRN PO 03/27/18 21:15 (Ativan Inj) 1 mg Q4H PRN IV PUSH 03/27/18 21:15 (Ativan) 2 mg Q2H PRN PO 03/27/18 21:15 (Ativan Inj) 2 mg Q2H PRN IV PUSH 03/27/18 21:15 (Ativan Inj) 2 mg Q1H PRN IV PUSH 03/27/18 21:15 (Ativan Inj) 2 mg Q15M PRN IV PUSH 03/27/18 21:15 (KCl) 10 meq BID PO 03/29/18 21:00 03/29/18 21:36 ([place] 5-325 Mg) 1 tab Q6H PRN PO 03/29/18 14:15 03/30/18 03:40 (Tylenol) 650 mg Q4H PRN PO 03/29/18 14:15 Vital Signs / I&O Vital Signs Date Time Temp Pulse Resp B/P (MAP) Pulse Ox O2 Delivery O2 Flow Rate FiO2 03/30/18 04:05 114 03/30/18 04:00 97.5 114 20 108/75 (86) 97 03/30/18 04:00 Room Air 03/30/18 00:32 Room Air 03/30/18 00:32 97.6 113 20 120/87 (98) 100 03/30/18 00:13 117 03/29/18 20:00 115 03/29/18 20:00 Room Air 03/29/18 20:00 98.0 114 20 120/84 (96) 98 03/29/18 16:32 18 03/29/18 16:00 110 03/29/18 16:00 97.8 113 18 109/77 (88) 98 03/29/18 12:01 97.4 111 18 117/74 (88) 99 03/29/18 12:00 110 03/29/18 08:01 97.8 104 18 105/81 (89) 100 03/29/18 08:00 Nasal Cannula 2.00 03/29/18 08:00 100 I/O 03/29/18 03/29/18 03/29/18 03/30/18 03/30/18 03/30/18 07:00 15:00 23:00 07:00 15:00 23:00 Intake Total 720 ml 720 ml 720 ml Output Total 250 ml 1475 ml Balance 470 ml -755 ml 720 ml Intake Oral 720 ml 720 ml 720 ml Output Urine Total 250 ml 1475 ml # Voids 7 4 # Bowel Movements 6 2 0 Physical Exam GENERAL: SKIN: Warm and dry. HEAD: Atraumatic. Normocephalic. EYES: Pupils equal and round. No scleral icterus. ENT: No nasal bleeding or discharge. NECK: Trachea midline. No JVD. CARDIOVASCULAR: tachycardic, regular rhythm. no murmurs RESPIRATORY: No accessory muscle use. Clear to auscultation. Breath sounds equal bilaterally. GASTROINTESTINAL: Abdomen soft, non-tender, nondistended. Hepatic and splenic margins not palpable. MUSCULOSKELETAL: Extremities without clubbing, cyanosis. 2+ pedal edema bilateral. No obvious deformities. NEUROLOGICAL: Awake and alert. No obvious cranial nerve deficits.. Normal speech. PSYCHIATRIC: Appropriate mood and affect; insight and judgment normal. Laboratory Laboratory Tests Test 03/27/18 14:49 03/27/18 19:26 03/28/18 02:14 03/29/18 04:00 White Blood Count 3.6 TH/MM3 Red Blood Count 5.10 MIL/MM3 Hemoglobin 17.2 GM/DL Hematocrit 50.0 % Mean Corpuscular Volume 98.1 FL Mean Corpuscular Hemoglobin 33.8 PG Mean Corpuscular Hemoglobin Concent 34.4 % Red Cell Distribution Width 14.7 % Platelet Count 147 TH/MM3 Mean Platelet Volume 10.5 FL Neutrophils (%) (Auto) 72.6 % Lymphocytes (%) (Auto) 20.9 % Monocytes (%) (Auto) 5.2 % Eosinophils (%) (Auto) 0.4 % Basophils (%) (Auto) 0.9 % Neutrophils # (Auto) 2.6 TH/MM3 Lymphocytes # (Auto) 0.7 TH/MM3 Monocytes # (Auto) 0.2 TH/MM3 Eosinophils # (Auto) 0.0 TH/MM3 Basophils # (Auto) 0.0 TH/MM3 CBC Comment DIFF FINAL Differential Comment Magnesium Level 1.7 MG/DL Direct Bilirubin 1.1 MG/DL Indirect Bilirubin 1.1 MG/DL Total Creatine Kinase 198 U/L Creatine Kinase MB 3.3 NG/ML B-Type Natriuretic Peptide 2196 PG/ML Lipase 467 U/L Prothrombin Time 12.0 SEC Prothromb Time International Ratio 1.2 RATIO Activated Partial Thromboplast Time 25.3 SEC Blood Urea Nitrogen 18 MG/DL 18 MG/DL Creatinine 1.53 MG/DL 1.34 MG/DL Random Glucose 83 MG/DL 78 MG/DL Total Protein 7.6 GM/DL Albumin 3.6 GM/DL Calcium Level 8.7 MG/DL 9.0 MG/DL Alkaline Phosphatase 213 U/L Aspartate Amino Transf (AST/SGOT) 59 U/L Alanine Aminotransferase (ALT/SGPT) 41 U/L Total Bilirubin 1.8 MG/DL Sodium Level 130 MEQ/L 131 MEQ/L Potassium Level 4.1 MEQ/L 3.5 MEQ/L Chloride Level 91 MEQ/L 90 MEQ/L Carbon Dioxide Level 27.9 MEQ/L 27.1 MEQ/L Troponin I 0.13 NG/ML Triglycerides Level 75 MG/DL Cholesterol Level 129 MG/DL LDL Cholesterol 48 MG/DL HDL Cholesterol 66.2 MG/DL Cholesterol/HDL Ratio 1.94 RATIO Thyroid Stimulating Hormone 3rd Gen 3.030 uIU/ML Anion Gap 14 MEQ/L Estimat Glomerular Filtration Rate 68 ML/MIN (Liz Colon) Assessment and Plan Problem List: (1) CHF (congestive heart failure) ICD Codes: I50.9 - Heart failure, unspecified Status: Acute (2) Cardiomyopathy ICD Codes: I42.9 - Cardiomyopathy, unspecified Assessment and Plan 52 yo AAM with HTN, history of alcohol and substance abuse and anxiety admitted progressive SOB, orthopnea and edema. CHF- clinically improving with lasix 40mg BID, renal function improving. cardiomyopathy- EF 20-25%, will require LifeVest upon discharge lexiscan today to determine ischemic vs. nonischemic. sinus tachycardia; add carvedilol 6.25mg; titrate dose if BP will allow he reports an allergy to Lisinopril elevated LFTs- likely alcoholic liver disease (Liz Colon) Assessment and Plan await lexiscan if negative, DC planning on Coreg and lasix PO BID LifeVest (Juaquin Barnes MD) Problem Qualifiers (1) CHF (congestive heart failure): Qualified Codes: I50.9 - Heart failure, unspecified (2) Cardiomyopathy: Qualified Codes: I42.9 - Cardiomyopathy, unspecified Liz Colon March 30, 2018 07:55 Juaquin Barnes MD March 30, 2018 11:02
--- NOTE | 2018-03-30 08:51 | HHI.PR ---
Subjective Remarks in no acute distress. reports orthopnea and occasional cough. still with bilateral pedal edema. no chest pain. Objective Vitals Vital Signs Date Time Temp Pulse Resp B/P (MAP) Pulse Ox O2 Delivery O2 Flow Rate FiO2 03/30/18 04:05 114 03/30/18 04:00 97.5 114 20 108/75 (86) 97 03/30/18 04:00 Room Air 03/30/18 00:32 Room Air 03/30/18 00:32 97.6 113 20 120/87 (98) 100 03/30/18 00:13 117 03/29/18 20:00 115 03/29/18 20:00 Room Air 03/29/18 20:00 98.0 114 20 120/84 (96) 98 03/29/18 16:32 18 03/29/18 16:00 110 03/29/18 16:00 97.8 113 18 109/77 (88) 98 03/29/18 12:01 97.4 111 18 117/74 (88) 99 03/29/18 12:00 110 I/O 03/29/18 03/29/18 03/29/18 03/30/18 03/30/18 03/30/18 07:00 15:00 23:00 07:00 15:00 23:00 Intake Total 720 ml 720 ml 720 ml Output Total 250 ml 1475 ml Balance 470 ml -755 ml 720 ml Intake Oral 720 ml 720 ml 720 ml Output Urine Total 250 ml 1475 ml # Voids 7 4 # Bowel Movements 6 2 0 Result Diagram: 03/27/18 1449 03/29/18 0400 Imaging Last Impressions Liver Ultrasound 03/28/18 0000 Signed Impressions: CONCLUSION: 1. There are gallstones in the gallbladder. There is some thickening of the ga llbladder wall with a trace of fluid around the gallbladder. This can be seen w ith either acute or chronic cholecystitis. Recommend correlation with patient's clinical exam and laboratory values. 2. Small amount of ascites adjacent to the liver. Abdomen Ultrasound 03/28/18 0000 Signed Impressions: CONCLUSION: 1. Trace ascites with insufficient volume for safe paracentesis at this time. Lower Extremity Ultrasound 03/27/18 0000 Signed Impressions: Service Date/Time: Tuesday, March 27, 2018 16:14 - CONCLUSION: Negative exam. No sonographic or Doppler findings of deep venous thrombosis. Eamon Dallas MD Chest X-Ray 03/27/18 0000 Signed Impressions: Service Date/Time: Tuesday, March 27, 2018 15:01 - CONCLUSION: Slight left base infiltrate and effusion Jeff Medina MD CT Angiography 03/27/18 0000 Signed Impressions: Service Date/Time: Tuesday, March 27, 2018 16:50 - CONCLUSION: No evidence of pulmonary embolism Jeff Medina MD Abdomen/Pelvis CT 03/27/18 0000 Signed Impressions: Service Date/Time: Tuesday, March 27, 2018 16:50 - CONCLUSION: Hepatic steatosis or edema and peritoneal ascites. Jeff Medina MD Objective Remarks GENERAL: This is a well-nourished, well-developed patient, in no apparent distress. CARDIOVASCULAR: Regular rate and regular rhythm without murmurs, gallops, or rubs. RESPIRATORY: diminished air entry in bases. GASTROINTESTINAL: Abdomen soft, non-tender, nondistended. Normal, active bowel sounds MUSCULOSKELETAL: Extremities with bilateral pedal edema. NEURO: Alert & Oriented x4 to person, place, time, situation. Moves all ext x4 Medications and IVs Inpatient Medications Acetaminophen (Tylenol) 650 mg Q4H PRN PO PAIN 1-6; Start 03/29/18 at 14:15 Acetaminophen/ Hydrocodone Bitart ([place] 5-325 Mg) 1 tab Q6H PRN PO PAIN 7-10 Last administered on 03/30/18at 03:40; Start 03/29/18 at 14:15 Aspirin (Aspirin Chew) 162 mg ONCE ONCE CHEW Last administered on 03/27/18at 17 :43; Start 03/27/18 at 16:45; Stop 03/27/18 at 16:46; Status DC Carvedilol (Coreg) 6.25 mg Q12HR PO ; Start 03/30/18 at 09:00 Enoxaparin Sodium (Lovenox Inj) 40 mg Q24H SQ Last administered on 03/29/18at 21 :36; Start 03/27/18 at 22:00 Flumazenil (Romazicon Inj) 0.2 mg Q1M PRN IV PUSH SEE LABEL COMMENTS; Start at 21:15 Furosemide (Lasix Inj) 40 mg ONCE ONCE IV PUSH Last administered on 03/27/18at 21:22; Start 03/27/18 at 21:00; Stop 03/27/18 at 21:01; Status DC Ipratropium [place] (Atrovent Neb) 0.5 mg Q4HR NEB PRN NEB Dyspnea; Start 03/27 at 21:00 Lorazepam (Ativan Inj) 2 mg Q15M PRN IV PUSH CIWA > 20; Start 03/27/18 at 21:15 Lorazepam (Ativan) 2 mg Q2H PRN PO CIWA 11-14; Start 03/27/18 at 21:15 Magnesium Sulfate/ Dextrose 100 ml @ 100 mls/hr Q1H IV Last administered on at 21:22; Start 03/27/18 at 20:00; Stop 03/27/18 at 21:59; Status DC Potassium Chloride (KCl) 10 meq BID PO Last administered on 03/29/18at 21:36; Start 03/29/18 at 21:00 Temazepam (Restoril) 15 mg HS PRN PO INSOMNIA Last administered on 03/29/18at 21 :36; Start 03/27/18 at 21:00 A/P Problem List: (1) CHF (congestive heart failure) ICD Code: I50.9 - Heart failure, unspecified Status: Acute (2) Elevated troponin ICD Code: R74.8 - Abnormal levels of other serum enzymes Status: Acute (3) PAZ (acute kidney injury) ICD Code: N17.9 - Acute kidney failure, unspecified (4) CKD (chronic kidney disease) stage 2, GFR 60-89 ml/min ICD Code: N18.2 - Chronic kidney disease, stage 2 (mild) Assessment and Plan A/P acute systolic CHF -echo with EF 20-25% -BNP 2196. -continue Lasix -added Coreg- allergic to lisinopril -cardiology consult appreciated; stress test today; might need life-vest upon discharge. Acute kidney injury CKD stage II Hypomagnesemia Hypokalemia Hyponatremia - Will continue Lasix . -continue to monitor electrolytes. Probable Alcoholic liver disease -CT abd/pelvis shows hepatic steatosis, ascites. -liver US with trace ascites and gallstones- clinically no evidence of acute cholecystitis. Alcohol abuse Tobacco abuse Cocaine abuse Marijuana abuse -Patient counseled regarding substance abuse. Will start CIWA protocol. Full code. Lovenox. Discharge Planning awaiting stress test/ cardiology recommendations. possible discharge in one-two days if clinically improves and cleared by cardiology. Problem Qualifiers (1) CHF (congestive heart failure): Qualified Codes: I50.9 - Heart failure, unspecified Martin Baltazar MD March 30, 2018 08:51
[2018-03-30] MEDS ORDERED: CARVEDILOL 3.125 MG TAB PO SCH (09:00)
[2018-03-30] MEDS ORDERED: REGADENOSON INJ 0.4 MG/5 ML SYR ONE (11:00)
--- NOTE | 2018-03-30 13:32 | RADRPT ---
EXAM DATE: 03/30/2018 1:03 PM EDT AGE/SEX: 52 years / Male INDICATIONS:Congestive heart failure. . Shortness of breath for one day. CLINICAL DATA: This is the patient's initial encounter. Patient reports that signs and symptoms have been present for 1 day and indicates a pain score of 0/10. MEDICAL/SURGICAL HISTORY: Hypertension. . Left ankle. COMPARISON: No prior [facility] exams available for comparison. No external comparison. DOSE: 8.5 mCi Tc 99m Myoview at rest 26.5 mCi [id number] at stress 0.4 mg mg Lexiscan STRESS SYMPTOMS: None noted. EJECTION FRACTION: 15 % TECHNIQUE: The patient underwent pharmacologic stress with infusion of prescribed dose. Continuous ECG tracing was monitored during stress. Gated SPECT imaging was performed after stress and conventi onal SPECT imaging was performed at rest. The examination was performed on a SPECT/CT scanner, both attenuation and non-corrected datasets were reviewed. FINDINGS: Distribution: The maximum perfused segment at stress is in the anterolateral wall. Perfusion Study: The pattern of perfusion at stress is within normal limits. Gated Study: Global hypokinesia. The ejection fraction is calculated at 15%. RISK CATEGORY: High (>3% Annual Morality Rate) CONCLUSION: 1. No stress-induced ischemia. 2. Severe global hypokinesia with reduced EF of 15%. Electronically signed by: Kaushik Bonds MD 03/30/2018 1:31 PM EDT
[2018-03-30] MEDS: POTASSIUM CHLORIDE 10 MEQ CONTROLLED RELEASE TAB PO SCH ×2 (14:48→21:57)
[2018-03-30] MEDS: CARVEDILOL 6.25 MG TAB PO SCH ×2 (14:48→21:57)
[2018-03-30] MEDS: FUROSEMIDE 40 MG/4 ML VIAL IV PUSH SCH ×2 (14:49→21:58)
[2018-03-30] MEDS ORDERED: BENZOCAINE 7.5% ORAL GEL 9.4 GM TUBE OROPHARYNG PRN (21:30)
[2018-03-30] MEDS: ENOXAPARIN SODIUM 40 MG/0.4 ML SYRINGE SQ SCH (21:58)
[2018-03-31] VITALS (7 sets, daily range): BP systolic 94–112; BP diastolic 62–78; PULSE 91–105; RESP 20; TEMP 97.1–97.9; O2SAT 97–98
[2018-03-31] MEDS: ACETAMINOPHEN/HYDROcodone 325 MG/5 MG TAB PO PRN ×3 (00:49→14:55)
[2018-03-31] MEDS: TEMAZEPAM 15 MG CAP PO PRN (00:49)
--- NOTE | 2018-03-31 08:02 | PD.CARD.PN ---
Subjective Subjective Remarks Breathing is improving. Pedal edema is improving and patient is able to get his shoes on again. Denies any chest pain or shortness of breath. LifeVest ordered and pending. All questions answered. (Titus Darnell) Objective Medications Current Medications Medications (Trade) Dose Ordered Sig/Glenn Route Start Time Stop Time Status Last Admin (Lasix Inj) 40 mg BID@,18 IV PUSH 03/28/18 09:00 03/30/18 21:58 (Restoril) 15 mg HS PRN PO 03/27/18 21:00 03/31/18 00:49 (Atrovent Neb) 0.5 mg Q4HR NEB PRN NEB 03/27/18 21:00 (Lovenox Inj) 40 mg Q24H SQ 03/27/18 22:00 03/30/18 21:58 (Romazicon Inj) 0.2 mg Q1M PRN IV PUSH 03/27/18 21:15 (Ativan) 1 mg Q4H PRN PO 03/27/18 21:15 (Ativan Inj) 1 mg Q4H PRN IV PUSH 03/27/18 21:15 (Ativan) 2 mg Q2H PRN PO 03/27/18 21:15 (Ativan Inj) 2 mg Q2H PRN IV PUSH 03/27/18 21:15 (Ativan Inj) 2 mg Q1H PRN IV PUSH 03/27/18 21:15 (Ativan Inj) 2 mg Q15M PRN IV PUSH 03/27/18 21:15 (KCl) 10 meq BID PO 03/29/18 21:00 03/30/18 21:57 ([place] 5-325 Mg) 1 tab Q6H PRN PO 03/29/18 14:15 03/31/18 06:04 (Tylenol) 650 mg Q4H PRN PO 03/29/18 14:15 (Coreg) 6.25 mg Q12HR PO 03/30/18 09:00 03/30/18 21:57 (Baby Orajel 7.5% Oral Gel) 1 applic Q6H PRN OROPHARYNG 03/30/18 21:30 03/31/18 00:48 Vital Signs / I&O Vital Signs Date Time Temp Pulse Resp B/P (MAP) Pulse Ox O2 Delivery O2 Flow Rate FiO2 03/31/18 04:08 105 03/31/18 04:00 97.2 95 20 94/62 (73) 97 03/31/18 04:00 Room Air 03/31/18 00:12 97 03/31/18 00:00 97.1 98 20 112/71 (85) 97 03/31/18 00:00 Room Air 03/30/18 20:10 103 03/30/18 20:00 97.5 106 20 104/74 (84) 96 03/30/18 20:00 Room Air 03/30/18 16:00 97.4 101 18 101/79 (86) 100 03/30/18 12:00 97.4 109 18 127/94 (105) 97 03/30/18 08:00 Nasal Cannula 2.00 03/30/18 08:00 97.3 106 16 105/90 (95) 100 I/O 03/30/18 03/30/18 03/30/18 03/31/18 03/31/18 03/31/18 07:00 15:00 23:00 07:00 15:00 23:00 Intake Total 720 ml 960 ml 820 ml Output Total 840 ml Balance 720 ml 120 ml 820 ml Intake Oral 720 ml 960 ml 820 ml Output Urine Total 840 ml # Voids 4 9 # Bowel Movements 0 1 2 Physical Exam GENERAL: Well-developed well-nourished. In no acute distress. NECK: No carotid bruits. No JVD. CARDIOVASCULAR: Regular rate and rhythm. No murmur appreciated. RESPIRATORY: No accessory muscle use. Clear to auscultation. Breath sounds equal bilaterally. MUSCULOSKELETAL: No clubbing or cyanosis. 2+ pedal edema. NEUROLOGICAL: Awake and alert. Normal speech. Imaging Last Impressions Myocardial Perfusion Scan Nuc Med 03/30/18 Signed Impressions: CONCLUSION: 1. No stress-induced ischemia. 2. Severe global hypokinesia with reduced EF of 15%. Liver Ultrasound 03/28/18 Signed Impressions: CONCLUSION: 1. There are gallstones in the gallbladder. There is some thickening of the ga llbladder wall with a trace of fluid around the gallbladder. This can be seen w ith either acute or chronic cholecystitis. Recommend correlation with patient's clinical exam and laboratory values. 2. Small amount of ascites adjacent to the liver. Abdomen Ultrasound 03/28/18 Signed Impressions: CONCLUSION: 1. Trace ascites with insufficient volume for safe paracentesis at this time. Lower Extremity Ultrasound 03/27/18 Signed Impressions: Service Date/Time: Tuesday, March 27, 2018 16:14 - CONCLUSION: Negative exam. No sonographic or Doppler findings of deep venous thrombosis. Eamon Dallas MD Chest X-Ray 03/27/18 Signed Impressions: Service Date/Time: Tuesday, March 27, 2018 15:01 - CONCLUSION: Slight left base infiltrate and effusion Jeff Medina MD CT Angiography 03/27/18 Signed Impressions: Service Date/Time: Tuesday, March 27, 2018 16:50 - CONCLUSION: No evidence of pulmonary embolism Jeff Medina MD Abdomen/Pelvis CT 03/27/18 Signed Impressions: Service Date/Time: Tuesday, March 27, 2018 16:50 - CONCLUSION: Hepatic steatosis or edema and peritoneal ascites. Jeff Medina MD (Titus Darnell) Assessment and Plan Problem List: (1) CHF (congestive heart failure) ICD Codes: I50.9 - Heart failure, unspecified Status: Acute (2) Cardiomyopathy ICD Codes: I42.9 - Cardiomyopathy, unspecified Assessment and Plan 52 yo AAM with HTN, history of alcohol and substance abuse and anxiety admitted progressive SOB, orthopnea and edema. Acute systolic CHF: Clinically improving. Continue Lasix p.o. twice daily. Cardiomyopathy: EF 20-25%. Lexiscan 03/30 was nonischemic. Carvedilol 6.25 mg twice daily. Allergy to lisinopril. LifeVest. Tobacco abuse: Patient counseled regarding cessation. DC planning Discussed Condition With Patient, RN, hospitalist (Titus Darnell) Assessment and Plan NICM med mgt sinus tachycardia - unable to titrate BB due to SBP. low dose digoxin lasix once daily on DC watch weight watch salt [facility] ([place],Juaquin Mota MD) Problem Qualifiers (1) CHF (congestive heart failure): Qualified Codes: I50.9 - Heart failure, unspecified (2) Cardiomyopathy: Qualified Codes: I42.9 - Cardiomyopathy, unspecified Titus Darnell March 31, 2018 08:02 Juaquin Barnes MD March 31, 2018 08:23
--- NOTE | 2018-03-31 08:23 | EKG ---
Date Performed: 03/29/2018 Time Performed: 17:17:38 PTAGE: 52 years EKG: SINUS TACHYCARDIA LEFT ATRIAL ENLARGEMENT BORDERLINE LEFT AXIS DEVIATION MODERATE T-WAVE AB NORMALITY, CONSIDER LATERAL ISCHEMIA ABNORMAL ECG PREVIOUS TRACING : 03/27/2018 16.04 DOCTOR: John Samaniego Interpretating Date/Time 03/31/2018 08:16:26
[2018-03-31] MEDS ORDERED: FUROSEMIDE 40 MG TAB PO SCH (09:00)
[2018-03-31] MEDS ORDERED: DIGOXIN 0.5 MG/2 ML VIAL IV PUSH ONE (09:00)
--- NOTE | 2018-03-31 09:01 | HHI.PR ---
Subjective Remarks in no acute distress. sob has improved. swelling of the legs has improved. no new complaints. wants to go home today. Objective Vitals Vital Signs Date Time Temp Pulse Resp B/P (MAP) Pulse Ox O2 Delivery O2 Flow Rate FiO2 03/31/18 04:08 105 03/31/18 04:00 97.2 95 20 94/62 (73) 97 03/31/18 04:00 Room Air 03/31/18 00:12 97 03/31/18 00:00 97.1 98 20 112/71 (85) 97 03/31/18 00:00 Room Air 03/30/18 20:10 103 03/30/18 20:00 97.5 106 20 104/74 (84) 96 03/30/18 20:00 Room Air 03/30/18 16:00 97.4 101 18 101/79 (86) 100 03/30/18 12:00 97.4 109 18 127/94 (105) 97 I/O 03/30/18 03/30/18 03/30/18 03/31/18 03/31/18 03/31/18 07:00 15:00 23:00 07:00 15:00 23:00 Intake Total 720 ml 960 ml 820 ml Output Total 840 ml Balance 720 ml 120 ml 820 ml Intake Oral 720 ml 960 ml 820 ml Output Urine Total 840 ml # Voids 4 9 # Bowel Movements 0 1 2 Result Diagram: 03/27/18 1449 03/29/18 0400 Imaging Last Impressions Myocardial Perfusion Scan Nuc Med 03/30/18 0000 Signed Impressions: CONCLUSION: 1. No stress-induced ischemia. 2. Severe global hypokinesia with reduced EF of 15%. Liver Ultrasound 03/28/18 0000 Signed Impressions: CONCLUSION: 1. There are gallstones in the gallbladder. There is some thickening of the ga llbladder wall with a trace of fluid around the gallbladder. This can be seen w ith either acute or chronic cholecystitis. Recommend correlation with patient's clinical exam and laboratory values. 2. Small amount of ascites adjacent to the liver. Abdomen Ultrasound 03/28/18 0000 Signed Impressions: CONCLUSION: 1. Trace ascites with insufficient volume for safe paracentesis at this time. Lower Extremity Ultrasound 03/27/18 0000 Signed Impressions: Service Date/Time: Tuesday, March 27, 2018 16:14 - CONCLUSION: Negative exam. No sonographic or Doppler findings of deep venous thrombosis. Eamon Dallas MD Chest X-Ray 03/27/18 0000 Signed Impressions: Service Date/Time: Tuesday, March 27, 2018 15:01 - CONCLUSION: Slight left base infiltrate and effusion Jeff Medina MD CT Angiography 03/27/18 0000 Signed Impressions: Service Date/Time: Tuesday, March 27, 2018 16:50 - CONCLUSION: No evidence of pulmonary embolism Jeff Medina MD Abdomen/Pelvis CT 03/27/18 0000 Signed Impressions: Service Date/Time: Tuesday, March 27, 2018 16:50 - CONCLUSION: Hepatic steatosis or edema and peritoneal ascites. Jeff Medina MD Objective Remarks GENERAL: This is a well-nourished, well-developed patient, in no apparent distress. CARDIOVASCULAR: Regular rate and regular rhythm without murmurs, gallops, or rubs. RESPIRATORY: diminished air entry in bases. GASTROINTESTINAL: Abdomen soft, non-tender, nondistended. Normal, active bowel sounds MUSCULOSKELETAL: Extremities with bilateral pedal edema- has improved. NEURO: Alert & Oriented x4 to person, place, time, situation. Moves all ext x4 Procedures none Medications and IVs Inpatient Medications Acetaminophen (Tylenol) 650 mg Q4H PRN PO PAIN 1-6; Start 03/29/18 at 14:15 Acetaminophen/ Hydrocodone Bitart ([place] 5-325 Mg) 1 tab Q6H PRN PO PAIN 7-10 Last administered on 03/31/18at 06:04; Start 03/29/18 at 14:15 Aspirin (Aspirin Chew) 162 mg ONCE ONCE CHEW Last administered on 03/27/18at 17 :43; Start 03/27/18 at 16:45; Stop 03/27/18 at 16:46; Status DC Benzocaine (Baby Orajel 7.5% Oral Gel) 1 applic Q6H PRN OROPHARYNG TOOTH PAIN Last administered on 03/31/18at 00:48; Start 03/30/18 at 21:30 Carvedilol (Coreg) 6.25 mg Q12HR PO Last administered on 03/30/18at 21:57; Start 03/30/18 at 09:00 Digoxin (Lanoxin Inj) 0.25 mg ONCE ONCE IV PUSH ; Start 03/31/18 at 09:00; Stop 03/31/18 at 09:01 Digoxin (Lanoxin) 0.125 mg DAILY PO ; Start 04/01/18 at 09:00 Enoxaparin Sodium (Lovenox Inj) 40 mg Q24H SQ Last administered on 03/30/18at 21 :58; Start 03/27/18 at 22:00 Flumazenil (Romazicon Inj) 0.2 mg Q1M PRN IV PUSH SEE LABEL COMMENTS; Start at 21:15 Furosemide (Lasix Inj) 40 mg ONCE ONCE IV PUSH Last administered on 03/27/18at 21:22; Start 03/27/18 at 21:00; Stop 03/27/18 at 21:01; Status DC Furosemide (Lasix) 40 mg DAILY PO ; Start 03/31/18 at 09:00 Ipratropium [place] (Atrovent Neb) 0.5 mg Q4HR NEB PRN NEB Dyspnea; Start 03/27 at 21:00 Lorazepam (Ativan Inj) 2 mg Q15M PRN IV PUSH CIWA > 20; Start 03/27/18 at 21:15 Lorazepam (Ativan) 2 mg Q2H PRN PO CIWA 11-14; Start 03/27/18 at 21:15 Magnesium Sulfate/ Dextrose 100 ml @ 100 mls/hr Q1H IV Last administered on at 21:22; Start 03/27/18 at 20:00; Stop 03/27/18 at 21:59; Status DC Potassium Chloride (KCl) 10 meq BID PO Last administered on 03/30/18at 21:57; Start 03/29/18 at 21:00 Temazepam (Restoril) 15 mg HS PRN PO INSOMNIA Last administered on 03/31/18at 00 :49; Start 03/27/18 at 21:00 A/P Problem List: (1) CHF (congestive heart failure) ICD Code: I50.9 - Heart failure, unspecified Status: Acute (2) Elevated troponin ICD Code: R74.8 - Abnormal levels of other serum enzymes Status: Acute (3) PAZ (acute kidney injury) ICD Code: N17.9 - Acute kidney failure, unspecified (4) CKD (chronic kidney disease) stage 2, GFR 60-89 ml/min ICD Code: N18.2 - Chronic kidney disease, stage 2 (mild) Assessment and Plan A/P acute systolic CHF -echo with EF 20-25% -BNP 2196. -continue Lasix -added Coreg- allergic to lisinopril -cardiology consult appreciated; stress test negative for ischemia; will need life vest. -low dose digoxin was added. -patient was counselled on low-salt diet and weight monitoring. Acute kidney injury CKD stage II Hypomagnesemia Hypokalemia Hyponatremia - Will continue Lasix . -continue to monitor electrolytes. Probable Alcoholic liver disease -CT abd/pelvis shows hepatic steatosis, ascites. -liver US with trace ascites and gallstones- clinically no evidence of acute cholecystitis. Alcohol abuse Tobacco abuse Cocaine abuse Marijuana abuse -Patient counseled regarding substance abuse. Full code. Lovenox. Discharge Planning d/w cardiology today; cleared for discharge. will dc home when life vest has been arranged. see med list. f/u; pcp and cardiology. d/w the patient. Problem Qualifiers (1) CHF (congestive heart failure): Qualified Codes: I50.9 - Heart failure, unspecified Martin Baltazar MD March 31, 2018 09:01
[2018-03-31] MEDS ORDERED: K-TA10TA PO (09:03)
[2018-03-31] MEDS ORDERED: CARV6.25 PO (09:03)
[2018-03-31] MEDS ORDERED: DIGO0.12 PO (09:03)
[2018-03-31] MEDS ORDERED: FURO40TA PO (09:03)
--- NOTE | 2018-03-31 09:04 | HHI.DS ---
Discharge Summary Admission Date March 27, 2018 at 17:49 Discharge Date: March 31, 2018 Admitting Diagnosis new onset CHF, elevated troponin, ascites (1) CHF (congestive heart failure) ICD Code: I50.9 - Heart failure, unspecified Diagnosis: Principal Status: Acute (2) Elevated troponin ICD Code: R74.8 - Abnormal levels of other serum enzymes Diagnosis: Principal Status: Acute (3) PAZ (acute kidney injury) ICD Code: N17.9 - Acute kidney failure, unspecified Diagnosis: Principal (4) CKD (chronic kidney disease) stage 2, GFR 60-89 ml/min ICD Code: N18.2 - Chronic kidney disease, stage 2 (mild) Diagnosis: Secondary Procedures none Brief History - From Admission Mr. George is a pleasant 52-year-old -[place]ien with a history of hypertension, substance abuse, alcohol abuse who presents to the emergency department due to 2 week duration of shortness of breath, orthopnea, lower extremity edema. [facility]. Patient reports significant orthopnea and nonproductive cough. He is unable to walk from his home to his mailbox without getting short of breath. He denies any pre-existing cardiac disease history. He denies any chest pain, fever or chills. No changes in bowel or bladder habits. CBC/BMP: 03/27/18 1449 03/29/18 0400 Significant Findings Laboratory Tests Test 03/29/18 04:00 Creatinine 1.34 MG/DL (0.60-1.30) Sodium Level 131 MEQ/L (136-145) Chloride Level 90 MEQ/L (98-107) Estimat Glomerular Filtration Rate 68 ML/MIN (>89) Imaging Last Impressions Myocardial Perfusion Scan Nuc Med 03/30/18 0000 Signed Impressions: CONCLUSION: 1. No stress-induced ischemia. 2. Severe global hypokinesia with reduced EF of 15%. Liver Ultrasound 03/28/18 0000 Signed Impressions: CONCLUSION: 1. There are gallstones in the gallbladder. There is some thickening of the ga llbladder wall with a trace of fluid around the gallbladder. This can be seen w ith either acute or chronic cholecystitis. Recommend correlation with patient's clinical exam and laboratory values. 2. Small amount of ascites adjacent to the liver. Abdomen Ultrasound 03/28/18 Signed Impressions: CONCLUSION: 1. Trace ascites with insufficient volume for safe paracentesis at this time. Lower Extremity Ultrasound 03/27/18 Signed Impressions: Service Date/Time: Tuesday, March 27, 2018 16:14 - CONCLUSION: Negative exam. No sonographic or Doppler findings of deep venous thrombosis. Eamon Dallas MD Chest X-Ray 03/27/18 Signed Impressions: Service Date/Time: Tuesday, March 27, 2018 15:01 - CONCLUSION: Slight left base infiltrate and effusion Jeff Medina MD CT Angiography 03/27/18 Signed Impressions: Service Date/Time: Tuesday, March 27, 2018 16:50 - CONCLUSION: No evidence of pulmonary embolism Jeff Medina MD Abdomen/Pelvis CT 03/27/18 Signed Impressions: Service Date/Time: Tuesday, March 27, 2018 16:50 - CONCLUSION: Hepatic steatosis or edema and peritoneal ascites. Jeff Medina MD PE at Discharge GENERAL: This is a well-nourished, well-developed patient, in no apparent distress. CARDIOVASCULAR: Regular rate and regular rhythm without murmurs, gallops, or rubs. RESPIRATORY: diminished air entry in bases. GASTROINTESTINAL: Abdomen soft, non-tender, nondistended. Normal, active bowel sounds MUSCULOSKELETAL: Extremities with bilateral pedal edema- has improved. NEURO: Alert & Oriented x4 to person, place, time, situation. Moves all ext x4 Hospital Course acute systolic CHF -echo with EF 20-25% -BNP 2196. -continue Lasix -added Coreg- allergic to lisinopril -cardiology consult appreciated; stress test negative for ischemia; will need life vest. -low dose digoxin was added. Acute kidney injury CKD stage II Hypomagnesemia Hypokalemia Hyponatremia - Will continue Lasix . -continue to monitor electrolytes. Probable Alcoholic liver disease -CT abd/pelvis shows hepatic steatosis, ascites. -liver US with trace ascites and gallstones- clinically no evidence of acute cholecystitis. Alcohol abuse Tobacco abuse Cocaine abuse Marijuana abuse -Patient counseled regarding substance abuse. Full code. Lovenox. Pt Condition on Discharge: Fair Discharge Disposition: Discharge Home Discharge Time: <= 30 minutes Discharge Instructions DIET: Follow Instructions for: Heart Healthy Diet Activities you can perform: Regular-No Restrictions Martin Baltazar MD March 31, 2018 09:04
[2018-03-31] MEDS: POTASSIUM CHLORIDE 10 MEQ CONTROLLED RELEASE TAB PO SCH (09:46)
[2018-03-31] MEDS: CARVEDILOL 6.25 MG TAB PO SCH (09:46)
[2018-04-01] MEDS ORDERED: DIGOXIN 0.125 MG TAB PO SCH (09:00)
== END 2018-03-31 19:20 | disposition home or self-care (01) | DRG 291 ==
LOC: NEPC 13:58 → NEDA 17:49 → N04A 19:40
PROVIDERS: ADMIT Internal Medicine; ATTEND Internal Medicine
DX: I13.0 Hypertensive heart and chronic kidney disease with heart failure and stage 1 through stage 4 chronic kidney disease, or unspecified chronic kidney disease (principal); I50.21 Acute systolic (congestive) heart failure; R18.8 Other ascites; I42.9 Cardiomyopathy, unspecified; E87.1 Hypo-osmolality and hyponatremia; F43.10 Post-traumatic stress disorder, unspecified; E83.42 Hypomagnesemia; F41.9 Anxiety disorder, unspecified; K76.0 Fatty (change of) liver, not elsewhere classified; M10.9 Gout, unspecified; F10.10 Alcohol abuse, uncomplicated; F19.10 Other psychoactive substance abuse, uncomplicated; R00.0 Tachycardia, unspecified; R74.8 Abnormal levels of other serum enzymes; N18.2 Chronic kidney disease, stage 2 (mild); E87.6 Hypokalemia; K70.9 Alcoholic liver disease, unspecified; Z72.0 Tobacco use
CPT/HCPCS: 71046; 71275; 74177; 76705; 78452; 80048; 80053; 80061; 80076; 82550; 82552; 83690; 83735; 83880; 84443; 84484; 85025; 85610; 85730; 93005; 93017; 93306; 93970; 96374; A9502; J1160; J1650; J1940; J2785; J3475; Q9967